=== PATIENT | female | born 1995 | race Caucasian/White ===

== ENCOUNTER 2017-02-19 17:37 | Emergency (ER) | payer OTHER ==
[2017-02-19] MEDS ORDERED: diphenhydrAMINE 50 MG/ML 1 ML VIAL IVP STA (18:52)
[2017-02-19] MEDS ORDERED: ACETAMINOPHEN IV (For NPO) 1,000 MG in EMPTY BAG 1 BAG IVPB STA (18:52)
[2017-02-19] MEDS ORDERED: METOCLOPRAMIDE 5 MG/ML 2 ML VIAL IVP STA (18:53)
[2017-02-19] MEDS ORDERED: SODIUM CHLORIDE 0.9% 1,000 ML IV ONE (18:54)
--- NOTE | 2017-02-19 19:04 | ED ---
Headache HPI <Harrison Matthews - Last Filed: 02/19/17 20:31> - General Source: RN notes reviewed Mode of arrival: ambulatory Limitations: no limitations <Leti Iverson - Last Filed: 02/20/17 03:22> - General Chief Complaint: Headache Stated Complaint: headache Time Seen by Provider: 02/19/17 18:24 - History of Present Illness Initial Comments: Patient is a 22-year-old female presents to the emergency room for evaluation of double vision and headache. Patient states she had an eye doctor appointment about a year ago and had double vision ever since. Patient states over the past week she's been having increasing headaches. Patient says it feels very "hot" behind her eyes. Patient states she wakes up every morning and takes about 10 minutes for her eyes to adjust. Patient states she sees double vision 24 hours day. Patient states when she watches a movie she usually covers 1 eye which helps her see better. Patient states when she does cover 1 eye her headache worsens. Patient states she has been taking Tylenol and Motrin with no relief of symptoms. Patient states that she followed up with an daycare assistant a few weeks ago, Dr. Saxena where she received a full eye exam. Patient states she was told that her eyes were completely healthy. Patient states she was told that her optic nerves appeared pink rather than red and was advised to follow-up with a neuro-daycare assistant. Patient states she has an appointment with neuro-daycare assistant on March 13 at [facility]. Patient states in the meantime she is still experiencing double vision and headaches that will not subside. Patient denies fevers or chills. Patient denies nausea or vomiting. Patient states she has a family history on fathers side of glaucoma and macular degeneration. Patient states her mother has a history of MS. patient denies any numbness or tingling in her fingers and toes. Patient denies any limb weakness. (Leti Iverson) - Related Data Previous Rx's Medication Instructions Recorded Amoxicillin/Potassium Clav 1 each PO Q12HR #20 tab 02/19/17 [Augmentin 875-125 Tablet] Butalb/Acetaminophen/Caffeine 1 - 2 cap PO Q4HR PRN #12 cap 02/19/17 [Fioricet 50-300-40 mg Capsule] Allergies Allergy/AdvReac Type Severity Reaction Status Date / Time No Known Allergies Allergy Verified 02/19/17 18:42 Review of Systems ROS Other: All systems not noted in ROS Statement are negative. <Harrison Matthews - Last Filed: 02/19/17 20:31> ROS Other: All systems not noted in ROS Statement are negative. <Leti Iverson - Last Filed: 02/20/17 03:22> ROS Statement: Those systems with pertinent positive or pertinent negative responses have been documented in the HPI. Past Medical History Additional Past Medical History / Comment(s): hypoglycemia History of Any Multi-Drug Resistant Organisms: None Reported Past Surgical History: No Surgical Hx Reported Additional Past Surgical History / Comment(s): cyst removed Past Anesthesia/Blood Transfusion Reactions: No Reported Reaction Past Psychological History: Anxiety Additional Psychological History / Comment(s): zoloft at beginning of - not currently medicated Smoking Status: Current every day smoker Past Alcohol Use History: Occasional Past Drug Use History: Marijuana - Past Family History Mother Family Medical History: No Reported History <Leti Iverson - Last Filed: 02/20/17 03:22> General Exam <Harrison Matthews - Last Filed: 02/19/17 20:31> Limitations: no limitations General appearance: alert, in no apparent distress Head exam: Present: atraumatic, normocephalic, normal inspection Eye exam: Present: normal appearance, PERRL, EOMI Pupils: Present: normal accommodation ENT exam: Present: normal exam, normal oropharynx, mucous membranes moist, TM's normal bilaterally, normal external ear exam Neck exam: Present: normal inspection Respiratory exam: Present: normal lung sounds bilaterally. Absent: respiratory distress Cardiovascular Exam: Present: regular rate, normal rhythm, normal heart sounds Extremities exam: Present: normal inspection Back exam: Present: normal inspection Neurological exam: Present: alert, oriented X3, CN II-XII intact, normal gait Expanded Speech: Present: fluid speech Cranial nerves: EOM's Intact: Normal Sensory exam: Upper Extremity Light Touch: Normal, Lower Extremity Light Touch: Normal Motor strength exam: RUE: 5, LUE: 5, RLE: 5, LLE: 5 Psychiatric exam: Present: normal affect, normal mood Skin exam: Present: warm, dry, intact, normal color. Absent: rash <Leti Iverson - Last Filed: 02/20/17 03:22> - General Exam Comments Initial Comments: Sitting in exam room, no acute distress. (Leti Iverson) Medical Decision Making - Lab Data Result diagrams: 02/19/17 19:15 02/19/17 19:15 <Harrison Matthews - Last Filed: 02/19/17 20:31> - Lab Data Result diagrams: 02/19/17 19:15 02/19/17 19:15 - Radiology Data Radiology results: report reviewed, image reviewed <Leti Iverson - Last Filed: 02/20/17 03:22> - Medical Decision Making Medical decision-making. Patient reports for the past 12 months she's had double vision. She's had glasses made for her which did not help. Visual acuity with each eye is 20/40. Today she comes emergency room because of a headache on the right side of the head. She has seen a local daycare assistant who was referred her to the [facility] [place] which will be in approximately 3 weeks. There is a family history of MS and the patient has neurological complaints such as not being able to move her normal way early in the morning. The patient received medications for her headache while in emergency room. She does state that drinking coffee occasionally helps with a headache. She will be placed on Fioricet for headaches. Advised to follow-up with family physician as well as on-call neurologist Dr. Morales. An MRI will be ordered prior to her visit with the neurologist. Dr. Matthews (Harrison Matthews) CT reviewed. Patient will also be placed on Augmentin for sphenoid sinusitis as well as being discharged with Fioricet for headaches. (Leti Iverson) - Lab Data Lab Results 02/19/17 02/19/17 Range/Units 19:15 19:15 WBC 14.7 H (3.8-10.6) k/uL RBC 5.31 (3.80-5.40) m/uL Hgb 15.9 (11.4-16.0) gm/dL Hct 49.3 H (34.0-46.0) % MCV 92.9 (80.0-100.0) fL MCH 29.9 (25.0-35.0) pg MCHC 32.2 (31.0-37.0) g/dL RDW 13.2 (11.5-15.5) % Plt Count 391 (150-450) k/uL Neutrophils % 73 % Lymphocytes % 19 % Monocytes % 4 % Eosinophils % 3 % Basophils % 1 % Neutrophils # 10.7 H (1.3-7.7) k/uL Lymphocytes # 2.8 (1.0-4.8) k/uL Monocytes # 0.5 (0-1.0) k/uL Eosinophils # 0.5 (0-0.7) k/uL Basophils # 0.2 (0-0.2) k/uL Sodium 145 (137-145) mmol/L Potassium 4.5 (3.5-5.1) mmol/L Chloride 108 H (98-107) mmol/L Carbon Dioxide 23 (22-30) mmol/L Anion Gap 14 mmol/L BUN 10 (7-17) mg/dL Creatinine 0.64 (0.52-1.04) mg/dL Est GFR (MDRD) Af Amer >60 (>60 ml/min/1.73 sqM) Est GFR (MDRD) Non-Af >60 (>60 ml/min/1.73 sqM) Glucose 79 (74-99) mg/dL Calcium 9.9 (8.4-10.2) mg/dL Total Bilirubin 0.8 (0.2-1.3) mg/dL AST 27 (14-36) U/L ALT 31 (9-52) U/L Alkaline Phosphatase 66 (38-126) U/L Total Protein 8.4 H (6.3-8.2) g/dL Albumin 4.9 (3.5-5.0) g/dL Disposition <Harrison Matthews - Last Filed: 02/19/17 20:31> Time of Disposition: 20:42 <Leti Iverson - Last Filed: 02/20/17 03:22> Clinical Impression: Headache, Double vision, Sinusitis Disposition: HOME SELF-CARE Condition: Good Instructions: Sinusitis (ED), Diplopia (ED) Additional Instructions: Please follow up with neurologist. Take antibiotics as directed. Take Fioricet needed for headache. If any new symptom arises or symptoms worsen, return to ER as soon as possible. Prescriptions: Butalb/Acetaminophen/Caffeine [Fioricet 50-300-40 mg Capsule] 1 - 2 cap PO Q4HR PRN #12 cap PRN Reason: Pain Amoxicillin/Potassium Clav [Augmentin 875-125 Tablet] 1 each PO Q12HR #20 tab Referrals: Orlando Morales MD [STAFF PHYSICIAN] - 1-2 days Conrad Maloney Jr, DO [Primary Care Provider] - 1-2 days
[2017-02-19 19:30] LABS: Basophils # (A) 0.2 k/uL (0-0.2); Basophils % (A) 1 %; CH 30.6; CHCM 33.1; Eosinophils # (A) 0.5 k/uL (0-0.7); Eosinophils % (A) 3 %; HCT 49.3 % (34.0-46.0); HGB 15.9 gm/dL (11.4-16.0); Luc # (Auto) 0.18; Luc % (Auto) 1; Lymphocytes # (A) 2.8 k/uL (1.0-4.8); Lymphocytes % (A) 19 %; MCH 29.9 pg (25.0-35.0); MCHC 32.2 g/dL (31.0-37.0); MCV 92.9 fL (80.0-100.0); Mean Platelet Volume 6.7; Monocytes # (A) 0.5 k/uL (0-1.0); Monocytes % (A) 4 %; Neutrophils # (A) 10.7 k/uL (1.3-7.7); Neutrophils % (A) 73 %; RBC 5.31 m/uL (3.80-5.40); RDW 13.2 % (11.5-15.5); WBC 14.7 k/uL (3.8-10.6)
[2017-02-19 19:39] LABS: ALT 31 U/L (9-52); AST 27 U/L (14-36); Alkaline Phosphatase 66 U/L (38-126); Anion Gap 14 mmol/L; Blood Urea Nitrogen 10 mg/dL (7-17); Calcium 9.9 mg/dL (8.4-10.2); Carbon Dioxide 23 mmol/L (22-30); Chloride 108 mmol/L (98-107); Glucose 79 mg/dL (74-99); Non-African American GFR(MDRD) >60 (>60 ml/min/1.73 sqM); Sodium 145 mmol/L (137-145); Total Bilirubin 0.8 mg/dL (0.2-1.3); Total Protein 8.4 g/dL (6.3-8.2)
[2017-02-19 19:44] LABS: Potassium 4.5 mmol/L (3.5-5.1)
--- NOTE | 2017-02-19 19:49 | CT ---
EXAMINATION TYPE: CT brain wo con DATE OF EXAM: 02/19/2017 7:35 PM COMPARISON: - HISTORY: Double vision x [address] DLP: 1121.00 mGycm Automated exposure control for dose reduction was used. FINDINGS: Ventricles and sulci appear normal. There is no mass effect nor midline shift. There is no sign of in tracranial hemorrhage. There is some mucosal thickening on the right side of the sphenoid sinus. Calv arium is intact. IMPRESSION: There is sphenoid sinusitis that is new compared to old exam. Otherwise negative exam.
[2017-02-19] MEDS ORDERED: BUTALB/APAP/CAFF 50-325-40MG TAB PO STA (20:30)
[2017-02-19 21:09] VITALS: BP 126/65; PULSE 78; RESP 16; TEMP 97.8
== END 2017-02-19 21:00 | disposition home or self-care (01) ==
LOC: EC 17:37
DX: R51 Headache (principal); H53.2 Diplopia; J32.9 Chronic sinusitis, unspecified; F17.200 Nicotine dependence, unspecified, uncomplicated
CPT/HCPCS: 36415; 80053; 85025; 70450; 99284; 96365; 96375 ×2; 96361; J1200; J2765; J0131

== ENCOUNTER → 2017-02-26 | Outpatient (CLI) | payer OTHER ==
--- NOTE | 2017-02-26 18:43 | MR ---
EXAMINATION TYPE: MR brain wo/w [place] wo DATE OF EXAM: 02/26/2017 6:03 PM COMPARISON: NONE HISTORY: Diplopia, neck pain Multiplanar MultiSpin echo imaging of the cervical spine was performed. Comparison: none There is reversal of the normal cervical lordosis which can be seen in patients with muscle spasticit y. C2-C3: No evidence for degenerative disc disease. No disc bulge/herniation or protrusion. No Canal stenosis. Foramina are patent bilaterally. C3-C4: No evidence for degenerative disc disease. No disc bulge/herniation or protrusion. No Canal stenosis. Foramina are patent bilaterally. C4-C5: No evidence for degenerative disc disease. No disc bulge/herniation or protrusion. No Canal stenosis. Foramina are patent bilaterally. C5-C6: No evidence for degenerative disc disease. No disc bulge/herniation or protrusion. No Canal stenosis. Foramina are patent bilaterally. C6-C7: No evidence for degenerative disc disease. No disc bulge/herniation or protrusion. No Canal stenosis. Foramina are patent bilaterally. C7-T1: No evidence for degenerative disc disease. No disc bulge/herniation or protrusion. No Canal stenosis. Foramina are patent bilaterally. Cervical segments are intact. Cervical spinal cord is of normal signal. Craniovertebral junction relationships are within normal limits. IMPRESSION: 1. There is reversal of the normal cervical lordosis which can be seen in patients with muscle spasti city. PRE AND POSTCONTRAST ENHANCED MRI OF THE BRAIN: CLINICAL HISTORY: Double vision CONTRAST: 15 ML Multihance Multiplanar and multispin-echo imaging of the brain was performed both before and after the administr ation of contrast. The ventricles, basal cisterns and sulci overlying the cerebral convexities are within normal limits. There is no evidence for midline shift or mass effect. Acute intracranial hemorrhage or extra-axial collection is not evident. There are no abnormal areas of increased or decreased signal intensity within the brain parenchyma. Incidental left parietal venous angioma. Following contrast administration, there is no evidence for pathologic enhancement or enhancing mass. The paranasal sinuses and mastoid air cells are well-aerated. IMPRESSION: Left parietal venous angioma noted incidentally. Otherwise unremarkable study.
== END | disposition home or self-care (01) ==
LOC: RADMRIMAIN 16:44
PROVIDERS: ATTEND Emergency Medicine
DX: D18.09 Hemangioma of other sites (principal); R51 Headache; M54.2 Cervicalgia
CPT/HCPCS: 70553; 72141; A9577

== ENCOUNTER 2017-02-27 17:20 | Emergency (ER) | payer OTHER ==
[2017-02-27 17:45] VITALS: RESP 18
[2017-02-27] MEDS ORDERED: diphenhydrAMINE 50 MG/ML 1 ML VIAL IVP STA (19:19)
[2017-02-27] MEDS ORDERED: METOCLOPRAMIDE 5 MG/ML 2 ML VIAL IVP STA (19:19)
[2017-02-27] MEDS ORDERED: SODIUM CHLORIDE 0.9% 1,000 ML IV STA (19:19)
--- NOTE | 2017-02-27 19:41 | ED ---
General Adult HPI - General Chief complaint: Headache Stated complaint: blurred vision, headache Time Seen by Provider: 02/27/17 18:34 Source: patient Mode of arrival: ambulatory Limitations: no limitations - History of Present Illness Initial comments: Patient is a 22-year-old female presenting with headache and double vision. Patient states she's been doing with a headache for the past 2 days. She describes as pressure in a bandlike around the head. Patient tries Fioricet with 30 minutes of relief from headache but not double vision. Patient states she's having binocular double vision for the past year. Patient states she had MRI 2 days ago. Patient has seen an registration specialist and referred to a neuro- registration specialist at [facility] for her double vision. Patient does smoke tobacco as well as marijuana. Patient denies any fever, chills, chest pain, shortness breath, nausea, vomiting, diarrhea, dysuria. Patient denies any weakness, numbness, trouble talking. Patient states her mother has multiple sclerosis. Chart reviewed from 02/19/2017: Dr. Saxena is her registration specialist. Neuro registration specialist appointment is March 13. MRI done 02/26/2017 shows an incidental left filed venous angioma otherwise unremarkable to account for her symptoms.. - Related Data Home Medications Medication Instructions Recorded Confirmed Amoxicillin/Potassium Clav 1 tab PO Q12HR 02/27/17 02/27/17 [Augmentin 875-125 Tablet] Allergies Allergy/AdvReac Type Severity Reaction Status Date / Time No Known Allergies Allergy Verified 02/27/17 18:54 Review of Systems ROS Statement: Those systems with pertinent positive or pertinent negative responses have been documented in the HPI. Constitutional: No fever and no chills. HENT: No congestion, no rhinorrhea and no sore throat. Eyes: No discharge and no redness. Respiratory: No cough and no shortness of breath. Cardiovascular: No chest pain and no palpitations. Gastrointestinal: No nausea, no vomiting, no abdominal pain and no diarrhea. Genitourinary: No dysuria and no hematuria. Musculoskeletal: No back pain and no arthralgias. Skin: No pallor and no rash. Neurological: No dizziness, + double vision and +headaches. ROS Other: All systems not noted in ROS Statement are negative. Past Medical History Additional Past Medical History / Comment(s): hypoglycemia History of Any Multi-Drug Resistant Organisms: None Reported Past Surgical History: No Surgical Hx Reported Additional Past Surgical History / Comment(s): cyst removed Past Anesthesia/Blood Transfusion Reactions: No Reported Reaction Past Psychological History: Anxiety Additional Psychological History / Comment(s): zoloft at beginning of - not currently medicated Smoking Status: Current every day smoker Past Alcohol Use History: Occasional Past Drug Use History: Marijuana - Past Family History Mother Family Medical History: No Reported History General Exam - General Exam Comments Initial Comments: Constitutional: Patient appears well-developed and well-nourished. No distress. Head: Normocephalic and atraumatic. Eyes: Conjunctivae and EOM are normal. Right eye exhibits no discharge. Left eye exhibits no discharge. No scleral icterus. Neck: Normal range of motion. Neck supple. Cardiovascular: Normal rate and regular rhythm. No murmur heard. Pulmonary/Chest: Effort normal and breath sounds normal. No respiratory distress. No wheezes. Abdominal: Soft. No distension. There is no tenderness. There is no rebound and no guarding. Musculoskeletal: Normal range of motion. No edema or tenderness. Neuro Exam: A&Ox3, speech is fluent and spontaneous CN 2: no visual field deficits, PERRL CN 3, 4, 6: EOMI, no nystagmus CN 5: facial sensation intact b/l CN 7: Eyebrow raise and smile equal b/l CN 8: hearing intact to conversation CN 9, 10: palate elevation equal, no hoarseness to voice CN 11: shoulder shrug equal b/l CN 12: tongue protrusion w/o deviation Sensory: Intact to light touch, upper and lower extremities Motor: No pronator drift, no atrophy, normal muscle tone, b/l muscle strength 5/ 5 of hand flexors, biceps, triceps, quads, hamstrings, plantar and dorsiflexion Cerebellar: finger to nose intact b/l, heel to hill intact b/l, Romberg negative Skin: Skin is warm and dry. Not diaphoretic. Nursing notes and vitals reviewed. Limitations: no limitations Course Vital Signs 02/27/17 17:42 Temperature 99.1 F Pulse Rate 76 Respiratory 18 Rate Blood Pressure 121/67 O2 Sat by Pulse 99 Oximetry - Reevaluation(s) Reevaluation #1: 02/27/17 20:57 Patient with complete resolution of headache however patient still has double vision which she's had for the past year. Medical Decision Making - Medical Decision Making Patient is a 22-year-old female presenting with headache. Patient recently had a MRI which was unremarkable. CBC, BMP, TSH, UA, UDS unremarkable. UDS positive for what patient told me: Fioricet and marijuana. Patient had relief of headache with medications and oxygen. Prior to discharge, patient was resting comfortably in bed. Course of stay improved except for double vision. Denies pain. Discussed physical exam and diagnostic tests with patient. Questions answered and patient is agreeable to discharge with close follow up with Primary Care Physician. Instructed to return to Emergency Department if symptoms worsen. Patient has appointment with Dr. Mason tomorrow for referral to Dr. Morales. - Lab Data Result diagrams: 02/27/17 19:40 02/27/17 19:40 Lab Results 02/27/17 02/27/17 02/27/17 Range/Units 19:40 19:40 19:40 WBC 11.8 H (3.8-10.6) k/uL RBC 5.03 (3.80-5.40) m/uL Hgb 15.8 (11.4-16.0) gm/dL Hct 46.4 H (34.0-46.0) % MCV 92.3 (80.0-100.0) fL MCH 31.4 (25.0-35.0) pg MCHC 34.1 (31.0-37.0) g/dL RDW 12.9 (11.5-15.5) % Plt Count 443 (150-450) k/uL Neutrophils % 62 % Lymphocytes % 28 % Monocytes % 3 % Eosinophils % 5 % Basophils % 1 % Neutrophils # 7.3 (1.3-7.7) k/uL Lymphocytes # 3.4 (1.0-4.8) k/uL Monocytes # 0.4 (0-1.0) k/uL Eosinophils # 0.6 (0-0.7) k/uL Basophils # 0.1 (0-0.2) k/uL Sodium 148 H (137-145) mmol/L Potassium 4.2 (3.5-5.1) mmol/L Chloride 109 H (98-107) mmol/L Carbon Dioxide 27 (22-30) mmol/L Anion Gap 12 mmol/L BUN 9 (7-17) mg/dL Creatinine 0.67 (0.52-1.04) mg/dL Est GFR (MDRD) Af Amer >60 (>60 ml/min/1.73 sqM) Est GFR (MDRD) Non-Af >60 (>60 ml/min/1.73 sqM) Glucose 87 (74-99) mg/dL Calcium 10.0 (8.4-10.2) mg/dL TSH 2.770 (0.465-4.680) mIU/L Urine Color Yellow Urine Appearance Turbid H (Clear) Urine pH 7.5 (5.0-8.0) Ur Specific [place] 1.017 (1.001-1.035) Urine Protein Negative (Negative) Urine Glucose (UA) Negative (Negative) Urine Ketones Negative (Negative) Urine Blood Negative (Negative) Urine Nitrite Negative (Negative) Urine Bilirubin Negative (Negative) Urine Urobilinogen <2.0 (<2.0) mg/dL Ur Leukocyte Esterase Negative (Negative) Ur Squamous Epith Cells 1 (0-4) /hpf Amorphous Sediment Few H (None) /hpf Urine HCG, Qual (Not Detectd) Urine Opiates Screen Not Detected (NotDetected) Ur Oxycodone Screen Not Detected (NotDetected) Urine Methadone Screen Not Detected (NotDetected) Ur Propoxyphene Screen Not Detected (NotDetected) Ur Barbiturates Screen Detected H (NotDetected) U Tricyclic Antidepress Not Detected (NotDetected) Ur Phencyclidine Scrn Not Detected (NotDetected) Ur Amphetamines Screen Not Detected (NotDetected) U Methamphetamines Scrn Not Detected (NotDetected) U Benzodiazepines Scrn Not Detected (NotDetected) Urine Cocaine Screen Not Detected (NotDetected) U Marijuana (THC) Screen Detected H (NotDetected) 02/27/17 Range/Units 19:40 WBC (3.8-10.6) k/uL RBC (3.80-5.40) m/uL Hgb (11.4-16.0) gm/dL Hct (34.0-46.0) % MCV (80.0-100.0) fL MCH (25.0-35.0) pg MCHC (31.0-37.0) g/dL RDW (11.5-15.5) % Plt Count (150-450) k/uL Neutrophils % % Lymphocytes % % Monocytes % % Eosinophils % % Basophils % % Neutrophils # (1.3-7.7) k/uL Lymphocytes # (1.0-4.8) k/uL Monocytes # (0-1.0) k/uL Eosinophils # (0-0.7) k/uL Basophils # (0-0.2) k/uL Sodium (137-145) mmol/L Potassium (3.5-5.1) mmol/L Chloride (98-107) mmol/L Carbon Dioxide (22-30) mmol/L Anion Gap mmol/L BUN (7-17) mg/dL Creatinine (0.52-1.04) mg/dL Est GFR (MDRD) Af Amer (>60 ml/min/1.73 sqM) Est GFR (MDRD) Non-Af (>60 ml/min/1.73 sqM) Glucose (74-99) mg/dL Calcium (8.4-10.2) mg/dL TSH (0.465-4.680) mIU/L Urine Color Urine Appearance (Clear) Urine pH (5.0-8.0) Ur Specific [place] (1.001-1.035) Urine Protein (Negative) Urine Glucose (UA) (Negative) Urine Ketones (Negative) Urine Blood (Negative) Urine Nitrite (Negative) Urine Bilirubin (Negative) Urine Urobilinogen (<2.0) mg/dL Ur Leukocyte Esterase (Negative) Ur Squamous Epith Cells (0-4) /hpf Amorphous Sediment (None) /hpf Urine HCG, Qual Not Detected (Not Detectd) Urine Opiates Screen (NotDetected) Ur Oxycodone Screen (NotDetected) Urine Methadone Screen (NotDetected) Ur Propoxyphene Screen (NotDetected) Ur Barbiturates Screen (NotDetected) U Tricyclic Antidepress (NotDetected) Ur Phencyclidine Scrn (NotDetected) Ur Amphetamines Screen (NotDetected) U Methamphetamines Scrn (NotDetected) U Benzodiazepines Scrn (NotDetected) Urine Cocaine Screen (NotDetected) U Marijuana (THC) Screen (NotDetected) Disposition Clinical Impression: Headache, Double vision Disposition: HOME SELF-CARE Condition: Good Instructions: Acute Headache (ED), Diplopia (ED) Referrals: Sammy Marte MD [Primary Care Provider] - 1-2 days
[2017-02-27 19:57] LABS: Basophils # (A) 0.1 k/uL (0-0.2); Basophils % (A) 1 %; CH 30.1; CHCM 32.8; Eosinophils # (A) 0.6 k/uL (0-0.7); Eosinophils % (A) 5 %; HCT 46.4 % (34.0-46.0); HDW 2.26; HGB 15.8 gm/dL (11.4-16.0); Luc # (Auto) 0.13; Luc % (Auto) 1; Lymphocytes # (A) 3.4 k/uL (1.0-4.8); Lymphocytes % (A) 28 %; MCH 31.4 pg (25.0-35.0); MCHC 34.1 g/dL (31.0-37.0); MCV 92.3 fL (80.0-100.0); Mean Platelet Volume 6.4; Monocytes # (A) 0.4 k/uL (0-1.0); Monocytes % (A) 3 %; Neutrophils # (A) 7.3 k/uL (1.3-7.7); Neutrophils % (A) 62 %; RBC 5.03 m/uL (3.80-5.40); RDW 12.9 % (11.5-15.5); WBC 11.8 k/uL (3.8-10.6); WBC (Perox) 11.62
[2017-02-27 20:05] LABS: Amorphous Sediment,Urine Few /hpf; Appearance,Urine Turbid (Clear); Bilirubin,Urine Negative (Negative); Glucose,Urine (UA) Negative (Negative); Ketones,Urine Negative (Negative); Leukocyte Esterase,Urine Negative (Negative); Nitrite,Urine Negative (Negative); PH, Urine 7.5 (5.0-8.0); Particle Count 7582; Protein,Urine Negative (Negative); Specific Gravity,Urine 1.017 (1.001-1.035); Squamous Epithelial Cell,Urine 1 /hpf (0-4); UA Billing (MACRO vs. MICRO) MICRO; Urobilinogen,Urine <2.0 mg/dL (<2.0)
[2017-02-27 20:08] LABS: Anion Gap 12 mmol/L; Blood Urea Nitrogen 9 mg/dL (7-17); Carbon Dioxide 27 mmol/L (22-30); Chloride 109 mmol/L (98-107); Glucose 87 mg/dL (74-99); Non-African American GFR(MDRD) >60 (>60 ml/min/1.73 sqM); Potassium 4.2 mmol/L (3.5-5.1); Sodium 148 mmol/L (137-145)
[2017-02-27 21:20] VITALS: BP 122/65; PULSE 70; TEMP 97
== END 2017-02-27 21:20 | disposition home or self-care (01) ==
LOC: EC 17:20
DX: H53.8 Other visual disturbances (principal); R51 Headache; F17.200 Nicotine dependence, unspecified, uncomplicated
CPT/HCPCS: 36415; 80048; 84443; 85025; 81001; 81025; 80306; 99284; 96374; 96375; 96361 ×2; J1200; J2765

== ENCOUNTER 2017-12-28 17:32 | Emergency (ER) | payer OTHER ==
--- NOTE | 2017-12-28 18:10 | ED ---
General Adult HPI - General Chief complaint: Abdominal Pain Stated complaint: stomach pain Time Seen by Provider: 12/28/17 17:39 Source: patient, RN notes reviewed Mode of arrival: ambulatory Limitations: no limitations - History of Present Illness Initial comments: This is a 22-year-old female who presents to the emergency department with chief complaint of abdominal mass. Patient states that for the past couple of months she has had a dimple that she noticed on her right lower abdomen. Yesterday morning she noticed a small mass in this area. Patient states she is worried because she was diagnosed with ovarian cysts that ruptured a couple of years ago and she never followed up. She denies any nausea or vomiting, fevers or chills, shortness of breath or chest pain, abnormal vaginal bleeding or discharge, dysuria or hematuria. - Related Data Previous Rx's Medication Instructions Recorded Cephalexin [Keflex] 500 mg PO Q12HR #20 cap 12/28/17 Allergies Allergy/AdvReac Type Severity Reaction Status Date / Time No Known Allergies Allergy Verified 12/28/17 17:48 Review of Systems ROS Statement: Those systems with pertinent positive or pertinent negative responses have been documented in the HPI. ROS Other: All systems not noted in ROS Statement are negative. Past Medical History Additional Past Medical History / Comment(s): hypoglycemia History of Any Multi-Drug Resistant Organisms: None Reported Past Surgical History: No Surgical Hx Reported Additional Past Surgical History / Comment(s): cyst removed Past Anesthesia/Blood Transfusion Reactions: No Reported Reaction Past Psychological History: Anxiety Smoking Status: Current every day smoker Past Alcohol Use History: Occasional Past Drug Use History: Marijuana - Past Family History Mother Family Medical History: No Reported History General Exam - General Exam Comments Initial Comments: General: Awake and alert, well-developed; in no apparent distress. HEENT: Head atraumatic, normocephalic. Pupils are equal, round and reactive to light. Extraocular movements intact. Oropharynx moist without erythema or exudate. Neck: Supple. Normal ROM. Cardiovascular: Regular rate and rhythm. No murmurs, rubs or gallops. Chest symmetrical. Respiratory: Lungs clear to auscultation bilaterally. No wheezes, rales or rhonchi. Normal respiratory effort with no use of accessory muscles. Abdomen: Soft, non-tender, non-distended. No rigidity, rebound or guarding. Normal bowel sounds in all 4 quadrants. There is a superficial, pea-sized, firm immobile mass right lower quadrant abdomen. Musculoskeletal: Normal ROM, no tenderness bilateral upper and lower extremities. Ambulating normally. Skin: [place], warm and dry without rashes or lesions. Neurological: Alert and oriented x3. CN II-XII grossly intact. Speech is fluent and answers are appropriate. No focal neuro deficits. Psychiatric: Normal mood and affect. No overt signs of depression or anxiety noted. Limitations: no limitations Course Vital Signs 12/28/17 17:36 Temperature 98.1 F Pulse Rate 90 Respiratory 20 Rate Blood Pressure 129/85 O2 Sat by Pulse 100 Oximetry Medical Decision Making - Medical Decision Making This is a 22-year-old female who presents to the emergency department with chief complaint of abdominal mass. There is a small, firm immobile pea-sized mass right lower quadrant. Ultrasound was initially ordered. Patient states that she does not want to wait for an ultrasound and the results. She states that she would rather follow up outpatient with her primary care provider. Patient will be given a prescription for antibiotics as lump is likely a lymph node. Patient's vital signs are stable and she is in no acute distress. She will be discharged home. She is in agreement and voices understanding. All questions were answered. Disposition Clinical Impression: Mass of soft tissue Disposition: HOME SELF-CARE Condition: Good Instructions: Soft Tissue Mass (ED) Additional Instructions: Please take medications as prescribed. Please follow up with primary care provider within 1-2 days. Return to emergency department if symptoms should worsen or any concerns arise. Prescriptions: Cephalexin [Keflex] 500 mg PO Q12HR #20 cap Referrals: Sammy Marte MD [Primary Care Provider] - 1-2 days Time of Disposition: 18:38
[2017-12-28 18:44] VITALS: BP 124/78; PULSE 68; RESP 16; TEMP 98.7
== END 2017-12-28 18:43 | disposition home or self-care (01) ==
LOC: EC 17:32
DX: R19.03 Right lower quadrant abdominal swelling, mass and lump (principal); F17.200 Nicotine dependence, unspecified, uncomplicated
CPT/HCPCS: 99283

== ENCOUNTER → 2018-01-13 | Outpatient (CLI) | payer OTHER ==
--- NOTE | 2018-01-14 11:00 | US ---
EXAMINATION TYPE: US abdomen limited DATE OF EXAM: 01/13/2018 COMPARISON: NONE CLINICAL HISTORY: R19.09 abdominal mass. Patient has palpable area at RLQ that feels like a small superficial knot. She says it occasionally i s painful. At this area is an irregular shaped anechoic mass with no posterior enhancement, some internal echoes measuring, 0.6 x 0.5 x 0.5cm This may cross fat planes. Additional workup is recommended. Differential could include a solid lesio n. Infection could be considered differential. Hematoma be considered. IMPRESSION: 1. Small hypoechoic area within the subcutaneous tissues of the palpable abnormality of uncertain musa ology. Differential is discussed above. Additional workup is recommended.
== END | disposition home or self-care (01) ==
LOC: RADUSWWP 16:18
PROVIDERS: ATTEND Internal Medicine
DX: R19.09 Other intra-abdominal and pelvic swelling, mass and lump (principal)
CPT/HCPCS: 76705

== ENCOUNTER 2018-01-27 09:00 | Day surgery (SDC) | payer OTHER ==
[2018-01-22 14:54] VITALS: BMI 27.4
[~2018-01-27 09:00] MED LIST: DEXAMETHASONE SOD PHOSPHATE 10 MG/ML 1 ML VIAL IV ONE; HEPARIN SODIUM,PORCINE 5,000 UNIT/ML 1 ML VIAL SQ ONE; HYDROmorphone 0.5 MG/0.5 ML SYRINGE IVP PRN; LACTATED RINGERS 1,000 ML IV SCH; MORPHINE SULFATE 4 MG/ML SYRINGE IV PRN; ONDANSETRON 4 MG/2 ML VIAL IVP ONE; ONDANSETRON 4 MG/2 ML VIAL IVP PRN; Pre Op ABX Message 1 EACH MISC MISCELLANE ONE
[2018-01-27 09:45] VITALS: TEMP 97.4
--- NOTE | 2018-01-27 10:32 | P.GSHP ---
History of Present Illness H&P Date: 01/27/18 Chief Complaint: Abdominal wall lipoma This a 22-year-old female referred from Dr. Marte. Patient presents today for excision of abdominal wall lipoma. Patient is developed a 2 cm lipoma in the right lower quadrant. Past Medical History Past Medical History: Eye Disorder Additional Past Medical History / Comment(s): hypoglycemia. DIPLOPIA History of Any Multi-Drug Resistant Organisms: None Reported Past Surgical History: No Surgical Hx Reported Additional Past Surgical History / Comment(s): cyst removed. RT EYE SX FOR DIPLOPIA 09/2017 Past Anesthesia/Blood Transfusion Reactions: No Reported Reaction Smoking Status: Current every day smoker - Past Family History Mother Family Medical History: No Reported History Medications and Allergies Home Medications Medication Instructions Recorded Confirmed Type No Known Home Medications [No 01/22/18 01/22/18 History Known Home Medications] Allergies Allergy/AdvReac Type Severity Reaction Status Date / Time No Known Allergies Allergy Verified 01/22/18 14:47 Surgical - Exam Vital Signs Temp Pulse Resp BP Pulse Ox 97.4 F L 66 16 110/63 100 01/27/18 09:43 01/27/18 09:43 01/27/18 09:43 01/27/18 09:43 01/27/18 09:43 - General well developed, no distress - Eyes PERRL - ENT normal pinna - Neck no masses - Respiratory normal expansion - Cardiovascular Rhythm: regular - Abdomen 2 cm lipoma right lower quadrant Abdomen: soft, non tender Assessment and Plan Assessment: Abdominal wall lipoma. We'll perform excision.
[2018-01-27] MEDS ORDERED: BUPIVACAINE (PF) 0.25% 30 ML VIAL SQ ONE ×2 (10:41)
[2018-01-27] MEDS ORDERED: fentaNYL (PF) 50 MCG/ML 2 ML AMP ONE (10:45)
[2018-01-27] MEDS ORDERED: LIDOCAINE 1% INJ 10MG/ML (20 ML MDV) ONE (10:45)
[2018-01-27] MEDS ORDERED: PROPOFOL 10 MG/ML 20 ML VIAL IV ONE (10:45)
[2018-01-27] MEDS ORDERED: MIDAZOLAM 2 MG/2 ML VIAL ONE (10:45)
[2018-01-27] MEDS ORDERED: KETOROLAC 30 MG/ML 1 ML VIAL ONE (10:45)
[2018-01-27] MEDS ORDERED: ceFAZolin 1,000 MG VIAL IVPB ONE (10:56)
--- NOTE | 2018-01-27 11:15 | P.OP ---
Date of Procedure: 01/27/18 Preoperative Diagnosis: Right lower quadrant abdominal wall lipoma Postoperative Diagnosis: Right lower quadrant abdominal wall lipoma Procedure(s) Performed: Excision of abdominal wall lipoma Anesthesia: MAC Surgeon: Bill Lima Estimated Blood Loss (ml): 3 Pathology: other (Abdominal wall lipoma) Condition: stable Disposition: PACU Description of Procedure: The patient's placed in the operative table in the supine position. She received IV sedation. Her abdominal wall was prepped and draped usual sterile fashion. Patient had a 3 cm lipoma located in the right lower quadrant. The skin was anesthetized 1% local Xylocaine. And then the skin was incised using a 15 blade. Using blunt and sharp dissection and electrocautery the lipoma was excised. Lipomas first 5 cm diameter. The skin was then closed interrupted 3- 0 Monocryl suture. Dermabond was applied. Patient tolerated the procedure well and was sent to recovery in stable condition.
[2018-01-27 11:21] VITALS: RESP 18
[2018-01-27] MEDS ORDERED: ACETAMINOPHEN TAB 500 MG TAB PO ONE (11:38)
[2018-01-27] MEDS ORDERED: MORPHINE SULFATE 10 MG/ML SYRINGE IV ONE (12:25)
[2018-01-27 12:52] VITALS: BP 109/66; PULSE 58
== END 2018-01-27 13:09 | disposition home or self-care (01) ==
LOC: OR 09:00
PROVIDERS: ATTEND Surgery
DX: D48.1 Neoplasm of uncertain behavior of connective and other soft tissue (principal); H53.2 Diplopia; E16.2 Hypoglycemia, unspecified; F17.210 Nicotine dependence, cigarettes, uncomplicated
CPT/HCPCS: 81025; 88304; 22903; J2250; J1644; J1100; J2270; J2405; J0690; J2001; J3010; J1885; J2704

== ENCOUNTER 2018-05-25 20:13 | Observation (INO) | payer OTHER ==
[2018-05-25] MEDS ORDERED: SODIUM CHLORIDE 0.9% 1,000 ML IV STA (20:37)
[2018-05-25] MEDS ORDERED: METOCLOPRAMIDE 5 MG/ML 2 ML VIAL IVP STA (20:37)
[2018-05-25] MEDS ORDERED: ACETAMINOPHEN TAB 500 MG TAB PO STA (20:39)
--- NOTE | 2018-05-25 21:13 | ED ---
General Adult HPI - General Chief complaint: Abdominal Pain Stated complaint: Vomiting Time Seen by Provider: 05/25/18 20:25 Source: patient, RN notes reviewed Mode of arrival: wheelchair Limitations: no limitations - History of Present Illness Initial comments: 23-year-old female presents to the emergency department for a chief complaint of lower abdominal pain 3 days. Patient states she has been nauseous for the past 2 days but has not been vomiting much. Patient denies any diarrhea. Patient states the pain is mostly in the right lower quadrant. Patient has not had any abdominal surgeries. Patient states she is possibly . Patient denies any vaginal bleeding or discharge. Patient has no other complaints at this time including shortness of breath, chest pain, abdominal pain, nausea or vomiting, headache, or visual changes. - Related Data Home Medications Medication Instructions Recorded Confirmed No Known Home Medications 01/22/18 05/25/18 Allergies Allergy/AdvReac Type Severity Reaction Status Date / Time No Known Allergies Allergy Verified 05/25/18 20:21 Review of Systems ROS Statement: Those systems with pertinent positive or pertinent negative responses have been documented in the HPI. ROS Other: All systems not noted in ROS Statement are negative. Past Medical History Past Medical History: Eye Disorder Additional Past Medical History / Comment(s): hypoglycemia. DIPLOPIA History of Any Multi-Drug Resistant Organisms: None Reported Past Surgical History: No Surgical Hx Reported Additional Past Surgical History / Comment(s): cyst removed. RT EYE SX FOR DIPLOPIA 09/2017 Past Anesthesia/Blood Transfusion Reactions: No Reported Reaction Past Psychological History: Anxiety Smoking Status: Current every day smoker Past Alcohol Use History: Occasional Past Drug Use History: Marijuana - Past Family History Mother Family Medical History: No Reported History General Exam Limitations: no limitations General appearance: alert, in no apparent distress Head exam: Present: atraumatic, normocephalic, normal inspection ENT exam: Present: normal exam, mucous membranes moist Neck exam: Present: normal inspection, full ROM. Absent: tenderness, meningismus, lymphadenopathy Respiratory exam: Present: normal lung sounds bilaterally. Absent: respiratory distress, wheezes, rales, rhonchi, stridor Cardiovascular Exam: Present: regular rate, normal rhythm, normal heart sounds. Absent: systolic murmur, diastolic murmur, rubs, gallop, clicks GI/Abdominal exam: Present: soft, tenderness (RLQ tenderness with mild LLQ tenderness.), normal bowel sounds. Absent: distended, guarding, rebound, rigid Course Vital Signs 05/25/18 20:19 Temperature 98.2 F Pulse Rate 81 Respiratory 20 Rate Blood Pressure 144/64 O2 Sat by Pulse 98 Oximetry Medical Decision Making - Medical Decision Making 23-year-old female presents to the emergency department for a chief complaint of lower abdominal pain 3 days. Patient has had mild nausea but no vomiting. No diarrhea. Patient states she may be . CBC shows a white count of 17.2 with a left shift. CMP unremarkable. Urinalysis unremarkable. Ultrasound of the appendix appears to be visualized and appears normal. Ultrasound shows a gestational age of 8 weeks and 4 days no complicating process seen. Beta hCG 122,974. Patient still complaining of much pain in the right lower quadrant. Patient will be admitted for a white count with abdominal pain. Dr. Wilkerson also saw the patient and agrees. - Lab Data Result diagrams: 05/25/18 21:04 05/25/18 21:04 Lab Results 05/25/18 05/25/18 05/25/18 Range/Units 21:04 21:04 21:04 WBC 17.2 H (3.8-10.6) k/uL RBC 5.01 (3.80-5.40) m/uL Hgb 15.2 (11.4-16.0) gm/dL Hct 43.7 (34.0-46.0) % MCV 87.2 (80.0-100.0) fL MCH 30.3 (25.0-35.0) pg MCHC 34.7 (31.0-37.0) g/dL RDW 12.7 (11.5-15.5) % Plt Count 395 (150-450) k/uL Neutrophils % 77 % Lymphocytes % 15 % Monocytes % 5 % Eosinophils % 2 % Basophils % 0 % Neutrophils # 13.1 H (1.3-7.7) k/uL Lymphocytes # 2.6 (1.0-4.8) k/uL Monocytes # 0.8 (0-1.0) k/uL Eosinophils # 0.3 (0-0.7) k/uL Basophils # 0.0 (0-0.2) k/uL Sodium 138 (137-145) mmol/L Potassium 4.0 (3.5-5.1) mmol/L Chloride 108 H (98-107) mmol/L Carbon Dioxide 21 L (22-30) mmol/L Anion Gap 9 mmol/L BUN 5 L (7-17) mg/dL Creatinine 0.50 L (0.52-1.04) mg/dL Est GFR (CKD-EPI)AfAm >90 (>60 ml/min/1.73 sqM) Est GFR (CKD-EPI)NonAf >90 (>60 ml/min/1.73 sqM) Glucose 90 (74-99) mg/dL Calcium 9.6 (8.4-10.2) mg/dL Total Bilirubin 0.2 (0.2-1.3) mg/dL AST 20 (14-36) U/L ALT 30 (9-52) U/L Alkaline Phosphatase 56 (38-126) U/L Total Protein 7.0 (6.3-8.2) g/dL Albumin 4.3 (3.5-5.0) g/dL Amylase 50 (30-110) U/L Lipase 59 (23-300) U/L HCG, Quant 898267.0 mIU/mL Urine Color Urine Appearance (Clear) Urine pH (5.0-8.0) Ur Specific [place] (1.001-1.035) Urine Protein (Negative) Urine Glucose (UA) (Negative) Urine Ketones (Negative) Urine Blood (Negative) Urine Nitrite (Negative) Urine Bilirubin (Negative) Urine Urobilinogen (<2.0) mg/dL Ur Leukocyte Esterase (Negative) Urine WBC (0-5) /hpf Urine Mucus (None) /hpf Urine HCG, Qual (Not Detectd) 05/25/18 05/25/18 Range/Units 21:40 21:40 WBC (3.8-10.6) k/uL RBC (3.80-5.40) m/uL Hgb (11.4-16.0) gm/dL Hct (34.0-46.0) % MCV (80.0-100.0) fL MCH (25.0-35.0) pg MCHC (31.0-37.0) g/dL RDW (11.5-15.5) % Plt Count (150-450) k/uL Neutrophils % % Lymphocytes % % Monocytes % % Eosinophils % % Basophils % % Neutrophils # (1.3-7.7) k/uL Lymphocytes # (1.0-4.8) k/uL Monocytes # (0-1.0) k/uL Eosinophils # (0-0.7) k/uL Basophils # (0-0.2) k/uL Sodium (137-145) mmol/L Potassium (3.5-5.1) mmol/L Chloride (98-107) mmol/L Carbon Dioxide (22-30) mmol/L Anion Gap mmol/L BUN (7-17) mg/dL Creatinine (0.52-1.04) mg/dL Est GFR (CKD-EPI)AfAm (>60 ml/min/1.73 sqM) Est GFR (CKD-EPI)NonAf (>60 ml/min/1.73 sqM) Glucose (74-99) mg/dL Calcium (8.4-10.2) mg/dL Total Bilirubin (0.2-1.3) mg/dL AST (14-36) U/L ALT (9-52) U/L Alkaline Phosphatase (38-126) U/L Total Protein (6.3-8.2) g/dL Albumin (3.5-5.0) g/dL Amylase (30-110) U/L Lipase (23-300) U/L HCG, Quant mIU/mL Urine Color Yellow Urine Appearance Turbid H (Clear) Urine pH 7.5 (5.0-8.0) Ur Specific [place] 1.022 (1.001-1.035) Urine Protein Trace H (Negative) Urine Glucose (UA) Negative (Negative) Urine Ketones 2+ H (Negative) Urine Blood Negative (Negative) Urine Nitrite Negative (Negative) Urine Bilirubin Negative (Negative) Urine Urobilinogen 2.0 (<2.0) mg/dL Ur Leukocyte Esterase Negative (Negative) Urine WBC 1 (0-5) /hpf Urine Mucus Rare H (None) /hpf Urine HCG, Qual Detected (Not Detectd) Disposition Clinical Impression: Abdominal pain, Disposition: ADMITTED IP TO THIS HOSP Is patient prescribed a controlled substance at d/c from ED?: No Referrals: Sammy Marte MD [Primary Care Provider] - 1-2 days Time of Disposition: 00:48
[2018-05-25 21:21] LABS: Basophils % (A) 0 %; Eosinophils # (A) 0.3 k/uL (0-0.7); Eosinophils % (A) 2 %; HCT 43.7 % (34.0-46.0); HGB 15.2 gm/dL (11.4-16.0); Lymphocytes # (A) 2.6 k/uL (1.0-4.8); Lymphocytes % (A) 15 %; MCH 30.3 pg (25.0-35.0); MCHC 34.7 g/dL (31.0-37.0); MCV 87.2 fL (80.0-100.0); Mean Platelet Volume 6.7; Monocytes # (A) 0.8 k/uL (0-1.0); Monocytes % (A) 5 %; Neutrophils # (A) 13.1 k/uL (1.3-7.7); Neutrophils % (A) 77 %; Platelet Count 395 k/uL (150-450); RBC 5.01 m/uL (3.80-5.40); RDW 12.7 % (11.5-15.5); WBC 17.2 k/uL (3.8-10.6)
[2018-05-25 21:32] LABS: ALT 30 U/L (9-52); AST 20 U/L (14-36); Albumin 4.3 g/dL (3.5-5.0); Alkaline Phosphatase 56 U/L (38-126); Amylase 50 U/L (30-110); Anion Gap 9 mmol/L; Blood Urea Nitrogen 5 mg/dL (7-17); Calcium 9.6 mg/dL (8.4-10.2); Carbon Dioxide 21 mmol/L (22-30); Chloride 108 mmol/L (98-107); Glucose 90 mg/dL (74-99); Lipase 59 U/L (23-300); Sodium 138 mmol/L (137-145); Total Bilirubin 0.2 mg/dL (0.2-1.3)
[2018-05-25 22:02] LABS: Appearance,Urine Turbid (Clear); Bilirubin,Urine Negative (Negative); Blood,Urine Negative (Negative); Color,Urine Yellow; Glucose,Urine (UA) Negative (Negative); Ketones,Urine 2+ (Negative); Leukocyte Esterase,Urine Negative (Negative); Mucus,Urine Rare /hpf; Nitrite,Urine Negative (Negative); PH, Urine 7.5 (5.0-8.0); Protein,Urine Trace (Negative); Specific Gravity,Urine 1.022 (1.001-1.035); WBC,Urine 1 /hpf (0-5)
--- NOTE | 2018-05-26 00:17 | US ---
EXAMINATION TYPE: Transabdominal DATE OF EXAM: 02/04/18 COMPARISON: NONE CLINICAL HISTORY: Pain. EXAM PERFORMED: Transabdominal (TA) EXAM MEASUREMENTS: GESTATIONAL AGE / DATING Physician Established: Not yet established Dates by LMP: 03/26/2018 (8 weeks/4 days) EDC: 12/31/2018 Dates by First Scan: No previous this is first scan Dates by Current Scan for: (8 weeks/6 days) EDC: 12/29/2018 MATERNAL ANATOMY Uterus: 9.7 x 6.1 x 7.6 cm; Anteverted, appears wnl Right Ovary: 3.6 x 2.1 x 2.2 cm; Cystic area measured 0.9 x 0.8 x 0.8 cm likely follicle Left Ovary: 3.5 x 1.5 x 1.6 cm; Appears wnl Post CDS / Adnexa: Appears wnl Presence of free fluid: Not seen Presence of corpus luteal cyst: Not seen Presence of subchorionic bleed: Not seen GESTATION / SURVEY CRL: 2.2 cm (8 weeks/6 days) Yolk Sac (normal less than 6mm): 4 mm Heart Rate: 168 bpm Rhythm: Normal IUP: Viable IUP Date of LMP: 03/26/2018 Beta HcG (if available): 122,974 IMPRESSION: The ultrasound gestational age is 8 weeks 4 days. No complicating process seen.
--- NOTE | 2018-05-26 00:17 | US ---
EXAMINATION TYPE: US abdomen APPY DATE OF EXAM: 05/25/2018 COMPARISON: NONE CLINICAL HISTORY: Pain. APPENDIX AP Diameter (normal < 6mm): 5 mm Measured outer wall to outer wall. Is the appendix seen in its entirety from the proximal cecum to distal end: No Is the appendix compressible: Yes Does the appendix wall appear hypervascular: No Is an appendicolith present: No Is there inflammatory changes or free fluid present: No No rebound tenderness, no fevers IMPRESSION: Appendix appears to be visualized and appears normal.
[2018-05-26] MEDS ORDERED: cefTRIAXone IN SWFI 2,000 MG/20 ML SYRINGE IVP STA (00:39)
[2018-05-26] MEDS ORDERED: NALOXONE 0.4 MG/ML 1 ML VIAL IV PRN (00:48)
[2018-05-26] MEDS ORDERED: MORPHINE SULFATE 4 MG/ML SYRINGE IV PRN (00:48)
[2018-05-26] MEDS: SODIUM CHLORIDE 0.9% 1,000 ML IV SCH ×2 (01:19→10:23)
[2018-05-26 02:23] VITALS: BMI 24.1
[2018-05-26] MEDS ORDERED: METOCLOPRAMIDE 5 MG/ML 2 ML VIAL IVP SCH (03:15)
[2018-05-26] MEDS ORDERED: METOCLOPRAMIDE 5 MG/ML 2 ML VIAL IVP PRN (03:15)
[2018-05-26] MEDS: ACETAMINOPHEN TAB 325 MG TAB PO PRN ×2 (07:17→19:43)
[2018-05-26 12:21] LABS: Glucose,Whole Blood 101 mg/dL (75-99)
[2018-05-26 12:32] VITALS: RESP 16
[2018-05-26] MEDS: D5-0.9% NACL WITH KCL 20 MEQ/L 1,000 ML IV SCH ×2 (12:46→21:16)
--- NOTE | 2018-05-26 15:26 | P.OBCN ---
History of Present Illness Consult date: 05/26/18 Reason for consult: pelvic pain, early problem History of present illness: The patient is a 23-year-old 3 para 2001 who presented to the emergency room this morning with a 4 day history of acute onset right lower quadrant pain. There was no precipitating event and it came on quite quickly and has been severe causing her to see him the position on multiple occasions. She does report that the pain waxes and wanes to some extent and is worse as the day wears on. She has also had fairly significant nausea and vomiting over the same period of time. She was unaware that she was which was confirmed in the emergency room. Ultrasound demonstrates a single intrauterine which appears normal at 8 weeks and 6 days with a last menstrual period making her 8 weeks and 4 days. She has had no vaginal bleeding. She denies fever but has been unable to tolerate anything by mouth for several days. In the emergency room, white blood cell count was elevated and urine demonstrated 2+ ketones with no other significant findings. She carries no history of nephrolithiasis and denies any GI concerns aside from the recent onset of nausea. Obstetrical history: 3 para 2001 with 2 term vaginal deliveries without complications. The remainder of the history is as listed in history of present illness. Gynecologic history: Unremarkable with no history of any infections to include STDs. Review of Systems Review of systems is confined to history of present illness. Past Medical History Past Medical History: Eye Disorder Additional Past Medical History / Comment(s): hypoglycemia. DIPLOPIA History of Any Multi-Drug Resistant Organisms: None Reported Past Surgical History: No Surgical Hx Reported Additional Past Surgical History / Comment(s): cyst removed. RT EYE SX FOR DIPLOPIA 09/2017, 04/2018 Past Anesthesia/Blood Transfusion Reactions: No Reported Reaction Past Psychological History: Anxiety Additional Psychological History / Comment(s): zoloft at beginning of - not currently medicated Smoking Status: Current every day smoker Past Alcohol Use History: Occasional Additional Past Alcohol Use History / Comment(s): SMOKES 1 PACK PER WEEK SINCE AGE 16 Past Drug Use History: Marijuana Additional Drug Use History / Comment(s): marijuana use about 1x per week per pt - Past Family History Father Additional Family Medical History / Comment(s): pacemaker, glaucoma, scoliosis Mother Family Medical History: Cancer Additional Family Medical History / Comment(s): MS, breast ca Medications and Allergies Home Medications Medication Instructions Recorded Confirmed Type No Known Home Medications 01/22/18 05/26/18 History Allergies Allergy/AdvReac Type Severity Reaction Status Date / Time No Known Allergies Allergy Verified 05/26/18 08:53 Exam Vital Signs Temp Pulse Pulse Resp BP BP Pulse Ox 05/26/18 11:13 98.2 F 63 16 109/66 97 05/26/18 08:38 98.2 F 98 18 104/65 98 05/26/18 02:10 98.2 F 59 L 18 100/60 98 05/26/18 01:21 97.9 F 63 18 118/59 96 05/25/18 20:19 98.2 F 81 20 144/64 98 Intake and Output 05/26/18 05/26/18 05/26/18 06:59 14:59 22:59 Intake Total 400 Balance 400 Intake: Oral 400 Other: # Voids 3 # Emes[place] 1 Weight 65.771 kg In general, this is a well-developed, well-nourished white female in no apparent distress. Her heart has a regular rhythm and rate without murmur. Her lungs are clear to auscultation bilaterally in all wilson. Her abdomen is nondistended, is soft, with moderate tenderness primarily in the right lower quadrant though there is diffuse mild or tenderness throughout the remainder of the abdominal examination, most focused in the bilateral lower quadrants and, as noted above, more significant in the right lower quadrant and suprapubically. I am unable to appreciate any hernias, specifically in the right inguinal region. There is slight guarding but no rebound. Her extremities without any cyanosis, clubbing, or edema and are nontender to palpation bilaterally. Pelvic examination demonstrates no bladder tenderness. There is minimal cervical motion tenderness. Uterus is approximately 8 weeks in size, slightly anteverted, mobile, slightly tender, and normal in shape. The left adnexa is nontender without any apparent mass while the right adnexa is moderately tender with no apparent mass. Results Result Diagrams: 05/25/18 21:04 05/25/18 21:04 Abnormal Lab Results - Last 24 Hours (Table) 05/25/18 05/25/18 05/25/18 Range/Units 21:04 21:04 21:40 WBC 17.2 H (3.8-10.6) k/uL Neutrophils # 13.1 H (1.3-7.7) k/uL Chloride 108 H (98-107) mmol/L Carbon Dioxide 21 L (22-30) mmol/L BUN 5 L (7-17) mg/dL Creatinine 0.50 L (0.52-1.04) mg/dL POC Glucose (mg/dL) (75-99) mg/dL Urine Appearance Turbid H (Clear) Urine Protein Trace H (Negative) Urine Ketones 2+ H (Negative) Urine Mucus Rare H (None) /hpf 05/26/18 Range/Units 12:17 WBC (3.8-10.6) k/uL Neutrophils # (1.3-7.7) k/uL Chloride (98-107) mmol/L Carbon Dioxide (22-30) mmol/L BUN (7-17) mg/dL Creatinine (0.52-1.04) mg/dL POC Glucose (mg/dL) 101 H (75-99) mg/dL Urine Appearance (Clear) Urine Protein (Negative) Urine Ketones (Negative) Urine Mucus (None) /hpf Microbiology - Last 24 Hours (Table) 05/25/18 21:40 Urine Culture - Preliminary Urine,Clean Catch Assessment and Plan (1) Abdominal pain Current Visit: Yes Status: Acute Code(s): R10.9 - UNSPECIFIED ABDOMINAL PAIN SNOMED Code(s): 90763931 (2) Current Visit: Yes Status: Acute Code(s): Z34.90 - ENCNTR FOR SUPRVSN OF NORMAL , UNSP, UNSP TRIMESTER SNOMED Code(s): 26092316 Plan: The etiology of the pain is unclear at this time. The location of her pain as well as its description is consistent with a possible undiagnosed kidney stone traversing the right ureter. This would account for both the acute pain lasting for 4 days as well as elevated white count. There is no apparent blood in the urine however. In either case, as she is unable to tolerate either solids or liquids well, I will increase her IV rate to 125 mL per hour as the urinalysis did demonstrate significant dehydration. Additionally I have asked the nurses to strain her urine for a possible stone. We will continue to follow but I see no evidence of an etiology from a standpoint aside from the nausea which may be secondary to rapid rise in hormone level.
--- NOTE | 2018-05-26 16:22 | P.GSCN ---
History of Present Illness Consult date: 05/26/18 Reason for Consult: Abdominal pain History of present illness: This is a 23-year-old female who's had some complaints of some lower quadrant abdominal pain. Patient states that she had some crampy pain. She currently is hungry and states her pain has resolved. The patient is 8 weeks . Past Medical History Past Medical History: Eye Disorder Additional Past Medical History / Comment(s): hypoglycemia. DIPLOPIA History of Any Multi-Drug Resistant Organisms: None Reported Past Surgical History: No Surgical Hx Reported Additional Past Surgical History / Comment(s): cyst removed. RT EYE SX FOR DIPLOPIA 09/2017, 04/2018 Past Anesthesia/Blood Transfusion Reactions: No Reported Reaction Past Psychological History: Anxiety Additional Psychological History / Comment(s): zoloft at beginning of - not currently medicated Smoking Status: Current every day smoker Past Alcohol Use History: Occasional Additional Past Alcohol Use History / Comment(s): SMOKES 1 PACK PER WEEK SINCE AGE 16 Past Drug Use History: Marijuana Additional Drug Use History / Comment(s): marijuana use about 1x per week per pt - Past Family History Father Additional Family Medical History / Comment(s): pacemaker, glaucoma, scoliosis Mother Family Medical History: Cancer Additional Family Medical History / Comment(s): MS, breast ca Medications and Allergies Home Medications Medication Instructions Recorded Confirmed Type No Known Home Medications 01/22/18 05/26/18 History Allergies Allergy/AdvReac Type Severity Reaction Status Date / Time No Known Allergies Allergy Verified 05/26/18 08:53 Surgical - Exam Vital Signs Temp Pulse Resp BP Pulse Ox 98.2 F 81 20 144/64 98 05/25/18 20:19 05/25/18 20:19 05/25/18 20:19 05/25/18 20:19 05/25/18 20:19 - General well developed, no distress - ENT normal pinna - Neck no masses - Respiratory normal expansion - Cardiovascular Rhythm: regular - Abdomen Abdomen: non tender Results - Labs 05/25/18 21:04 05/25/18 21:04 Abnormal Lab Results - Last 24 Hours (Table) 05/25/18 05/25/18 05/25/18 Range/Units 21:04 21:04 21:40 WBC 17.2 H (3.8-10.6) k/uL Neutrophils # 13.1 H (1.3-7.7) k/uL Chloride 108 H (98-107) mmol/L Carbon Dioxide 21 L (22-30) mmol/L BUN 5 L (7-17) mg/dL Creatinine 0.50 L (0.52-1.04) mg/dL POC Glucose (mg/dL) (75-99) mg/dL Urine Appearance Turbid H (Clear) Urine Protein Trace H (Negative) Urine Ketones 2+ H (Negative) Urine Mucus Rare H (None) /hpf 05/26/18 Range/Units 12:17 WBC (3.8-10.6) k/uL Neutrophils # (1.3-7.7) k/uL Chloride (98-107) mmol/L Carbon Dioxide (22-30) mmol/L BUN (7-17) mg/dL Creatinine (0.52-1.04) mg/dL POC Glucose (mg/dL) 101 H (75-99) mg/dL Urine Appearance (Clear) Urine Protein (Negative) Urine Ketones (Negative) Urine Mucus (None) /hpf Microbiology - Last 24 Hours (Table) 05/25/18 21:40 Urine Culture - Preliminary Urine,Clean Catch Diabetes panel 05/25/18 Range/Units 21:04 Sodium 138 (137-145) mmol/L Potassium 4.0 (3.5-5.1) mmol/L Chloride 108 H (98-107) mmol/L Carbon Dioxide 21 L (22-30) mmol/L BUN 5 L (7-17) mg/dL Creatinine 0.50 L (0.52-1.04) mg/dL Glucose 90 (74-99) mg/dL Calcium 9.6 (8.4-10.2) mg/dL AST 20 (14-36) U/L ALT 30 (9-52) U/L Alkaline Phosphatase 56 (38-126) U/L Total Protein 7.0 (6.3-8.2) g/dL Albumin 4.3 (3.5-5.0) g/dL Calcium panel 05/25/18 Range/Units 21:04 Calcium 9.6 (8.4-10.2) mg/dL Albumin 4.3 (3.5-5.0) g/dL Pituitary panel 05/25/18 Range/Units 21:04 Sodium 138 (137-145) mmol/L Potassium 4.0 (3.5-5.1) mmol/L Chloride 108 H (98-107) mmol/L Carbon Dioxide 21 L (22-30) mmol/L BUN 5 L (7-17) mg/dL Creatinine 0.50 L (0.52-1.04) mg/dL Glucose 90 (74-99) mg/dL Calcium 9.6 (8.4-10.2) mg/dL Adrenal panel 05/25/18 Range/Units 21:04 Sodium 138 (137-145) mmol/L Potassium 4.0 (3.5-5.1) mmol/L Chloride 108 H (98-107) mmol/L Carbon Dioxide 21 L (22-30) mmol/L BUN 5 L (7-17) mg/dL Creatinine 0.50 L (0.52-1.04) mg/dL Glucose 90 (74-99) mg/dL Calcium 9.6 (8.4-10.2) mg/dL Total Bilirubin 0.2 (0.2-1.3) mg/dL AST 20 (14-36) U/L ALT 30 (9-52) U/L Alkaline Phosphatase 56 (38-126) U/L Total Protein 7.0 (6.3-8.2) g/dL Albumin 4.3 (3.5-5.0) g/dL Assessment and Plan Assessment: Resolved abdominal pain. 8 weeks . Patient will have a regular diet started. No surgical intervention is planned. I recommend discharge home.
--- NOTE | 2018-05-26 16:41 | HP ---
HISTORY AND PHYSICAL DATE OF SERVICE: 05/26/2018 CHIEF COMPLAINT: Abdominal pain. HISTORY OF PRESENT ILLNESS: This 23-year-old woman with a past medical history of multiple medical problems including hypoglycemia, history of diplopia, history of anxiety, history of THC , being followed by Dr. Marte in the outpatient setting, was complaining of abdominal pain. The pain was present for the last several days. The pain is felt mostly in the lower part of the abdomen and also mainly on the abdomen to the left side. The patient also has some nausea. Patient unable to keep anything down for several days according to her. The patient is also 8 weeks , being followed by Dr. Shelby. After admission, ultrasound of the abdomen did not show any evidence of any appendix inflammation. The ultrasound showed a viable . There is no history of any fever, rigors or chills. No history of headache, loss of consciousness, seizures. PAST MEDICAL HISTORY: Of hypoglycemia, diplopia, history of anxiety. MEDICATIONS: Prior to admission include home medications are none. ALLERGIES: None. The patient being followed by Dr. Marte in the outpatient setting. FAMILY HISTORY: Family history of with breast cancer. SOCIAL HISTORY: History of THC, history of smoking. REVIEW OF SYSTEMS: ENT: No diminished vision or hearing. Cardio system: No angina or palpitations. Respiratory: No cough. GI as mentioned earlier. as mentioned earlier. central nervous system: No numbness or weakness. Allergy/Immunology: No asthma or hayfever. Musculoskeletal as mentioned earlier. Hematology/Oncology: No history of anemia. Endocrine: No history of diabetes or hypothyroidism. CONSTITUTIONAL: As mentioned earlier. Dermatology: Negative. Rheumatology: Negative. Psychiatry: As mentioned earlier. PHYSICAL EXAMINATION: Alert and oriented times three. Pulse is 63, blood pressure 109/63, respirations 16, temperature 98.2, pulse ox 97% on room air. HEENT: Conjunctivae normal. Oral mucosa moist. NECK is no jugular venous distention. No carotid bruit. No lymph node enlargement. CARDIOVASCULAR: S1-S2. No S3, no S4. RESPIRATORY: Breath sounds diminished in the bases. No rhonchi and no crackles. ABDOMEN: Soft. Mild diffuse tenderness in the lower part of the hypogastrium and as well as the right lower quadrant present. No guarding. No rigidity. No mass palpable. Bowel sounds present. No ascites. LEGS: No edema and no swelling. NERVOUS SYSTEM: Higher functions as mentioned earlier. Moves all four extremities. No focal motor or sensory deficits. LYMPHATICS: No lymph nodes palpable in the neck , axillae or groin. SKIN: No ulcer, rash or bleeding. LABS: WBC 17.8, hemoglobin 15.2, sodium 138, creatinine 0.50. UA noted. HCG noted. Ultrasound noted. ASSESSMENT: 1. Lower abdominal pain for evaluation. 2. Increased WBC. 3. Eight weeks . 4. History of diplopia. 5. History of hypoglycemia. 6. History of anxiety. 7. History of nicotine dependence. 8. History of THC. 9. FULL CODE. RECOMMENDATIONS AND DISCUSSION: In this 23-year-old woman who presented with multiple complex medical issues, at this time, I recommend to continue the current medications, management and symptomatic treatment. Otherwise, at this time, I would recommend blood cultures and 1 dose of antibiotics has been given. I would recommend Infectious Disease and surgical evaluation and [employer] will also be requested to follow up the patient. Otherwise repeat labs are ordered and the exact etiology of presenting symptoms are unknown at this time. The patient apparently had similar symptoms during her first as well. Prognosis guarded. Further recommendations to follow. Discussed with the patient. A copy of dictation will be forwarded to Dr. Mrate who is the primary physician. DVT prophylaxis. MMANYGL / NIDIAN: [id number] / MTDD
[2018-05-26 16:58] LABS: Glucose,Whole Blood 95 mg/dL (75-99)
[2018-05-26] MEDS: FAMOTIDINE 20 MG/2 ML VIAL IV SCH (20:46)
[2018-05-26 21:17] LABS: Glucose,Whole Blood 91 mg/dL (75-99)
[2018-05-27] MEDS: D5-0.9% NACL WITH KCL 20 MEQ/L 1,000 ML IV SCH (04:33)
[2018-05-27] MEDS: ACETAMINOPHEN TAB 325 MG TAB PO PRN (04:52)
[2018-05-27 06:17] LABS: Glucose,Whole Blood 84 mg/dL (75-99)
--- NOTE | 2018-05-27 06:35 | CONS ---
CONSULTATION DATE OF SERVICE: 05/26/2018 REASON FOR CONSULTATION: Leukocytosis. HISTORY OF PRESENT ILLNESS: The patient is a 23-year-old female who presented to the hospital with chief complaints of pain in the right lower abdominal area. The pain has been going on for about 3 days prior to presentation to hospital. The patient has felt nauseated with episode of vomiting. The patient denies having any diarrhea or any constipation. The patient denies having any burning or frequency of urine. The patient denies having any fever, rigors or chills. With these symptoms, the patient has been evaluated by the ER physician. The patient did have a ultrasound of that area that was negative to be suspicious for any acute appendicitis. The patient has been afebrile. However, she has been noticed to have elevated white count 17.2 thousand. Further workup did show that the patient's HCG of the blood was positive. Her UA was negative. The patient was found to be 8 weeks . REVIEW OF SYSTEMS: CONSTITUTIONAL: Positive for weakness, but no fever. EYES: No complaint. ENT: No complaint. RESPIRATORY: No complaint. CARDIOVASCULAR: No complaint. GENITOURINARY: No complaint. GASTROINTESTINAL: As per HPI. MUSCULOSKELETAL: No complaint. INTEGUMENTARY: No complaint. PSYCHOLOGICAL: No complaint. ENDOCRINE: No complaint. NEUROLOGIC: No complaint. PAST MEDICAL HISTORY: Her past medical history is significant for diplopia and hypoglycemia. PAST SURGICAL HISTORY: Cyst removed from the right eye and right eye surgery. SOCIAL HISTORY: The patient is currently an every day smoker. Occasional drinks and admitted to marijuana use. FAMILY HISTORY: No pertinent findings noticed. ALLERGIES: No known drug allergies. MEDICATION: Medications include the patient is currently on Tylenol, Pepcid, Reglan, Narcan, did receive a 2 gram dose of Rocephin this morning. PHYSICAL EXAMINATION: On examination, her blood pressure is 117/61 with a pulse of 68, temperature 98.6. She is 97% on room air. General description is a middle-aged female lying in bed in no distress. No tachypnea or accessory muscle of respiration use. HEENT examination shows no pallor or scleral icterus. Oral mucous membrane is dry. No pharyngeal erythema or thrush. NECK: Trachea central. No thyromegaly. LUNGS: Unlabored breathing. Clear to auscultation anteriorly. No wheeze or crackle. HEART: S1, S2. Regular rate and rhythm. ABDOMEN: Soft. She is mildly tender in right lower quadrant. No guarding or rigidity. No organomegaly. EXTREMITIES: No edema of feet. SKIN EXAMINATION: No rash or mass palpable. NEUROLOGICAL: Patient is awake, alert, oriented. Mood and affect normal. LABS: Hemoglobin 15.2, white count 17.2 with BUN of 5, creatinine 0.50. UA has been negative. Urine HCG as well as blood HCG has been positive. Ultrasound of the right lower quadrant negative for any evidence of appendicitis. DIAGNOSTIC IMPRESSION AND PLAN: Patient with leukocytosis in patient admitted to the hospital with abdominal pain. Pain has been mostly in the right lower quadrant area. The patient subsequent workup did show she is 8 weeks . The patient is currently not running any fever. UA has been negative. Ultrasound was negative for any suspicious for possible appendicitis with a questionable source of abdominal pain kidney stones, but no definite focus of infection. PLAN: 1. We will monitor the patient closely off antibiotic therapy as clinically no clear focus of infection and the patient is 8 weeks . 2. RN has been advised if the patient spikes any fever to let me know right away at that point. Patient will be recultured and started on appropriate antibiotic. 3. Depending upon her clinical response as well as cultures will further adjust her medication if needed. Thank you for this consultation. Will follow this patient along with you. MMANGYL / IJN: [id number] /
[2018-05-27 07:04] LABS: Basophils % (A) 0 %; Eosinophils # (A) 0.3 k/uL (0-0.7); Eosinophils % (A) 3 %; HCT 37.3 % (34.0-46.0); Lymphocytes # (A) 2.5 k/uL (1.0-4.8); Lymphocytes % (A) 25 %; MCH 29.3 pg (25.0-35.0); MCHC 32.7 g/dL (31.0-37.0); MCV 89.8 fL (80.0-100.0); Mean Platelet Volume 6.5; Monocytes # (A) 0.7 k/uL (0-1.0); Monocytes % (A) 7 %; Neutrophils # (A) 6.3 k/uL (1.3-7.7); Neutrophils % (A) 63 %; Platelet Count 281 k/uL (150-450); RBC 4.16 m/uL (3.80-5.40)
[2018-05-27 07:14] LABS: Anion Gap 6 mmol/L; Blood Urea Nitrogen 5 mg/dL (7-17); Calcium 8.4 mg/dL (8.4-10.2); Carbon Dioxide 21 mmol/L (22-30); Chloride 112 mmol/L (98-107); Glucose 80 mg/dL (74-99); Potassium 4.3 mmol/L (3.5-5.1); Sodium 139 mmol/L (137-145)
[2018-05-27 07:15] LABS: HGB 12.2 gm/dL (11.4-16.0)
--- NOTE | 2018-05-27 08:33 | P.PN ---
Subjective Progress Note Date: 05/27/18 The patient reports a moderate pain improvement and complete resolution of nausea overnight. She has not passed the stone to her knowledge or the nursing staff's. She is now tolerating both liquids and solids without further nausea. She denies any further significant symptoms though her abdominal pain does remain in place and now appears to be consistent with musculoskeletal pain from constant retching. Objective - Vital Signs Vital signs: Vital Signs Temp 98.6 F 05/26/18 21:09 Pulse 60 05/26/18 21:09 Resp 16 05/26/18 21:09 BP 117/61 05/26/18 21:09 Pulse Ox 97 05/26/18 21:09 Intake & Output 05/26/18 05/27/18 05/27/18 18:59 06:59 18:59 Intake Total 400 2040 Balance 400 2040 Intake: Oral 400 2040 Other: # Voids 3 # Emeses 1 - Exam In general, this is a well-developed, well-nourished white female in no acute distress. Her heart has a regular rhythm and rate without murmur. Her lungs are clear to auscultation bilaterally in all wilson. Her abdomen is nondistended, has normal active bowel sounds, is soft, with minimal and significantly decreased tenderness primarily in the right lower quadrant but still generalized to the remainder of the abdomen. Her extremities are without any cyanosis, clubbing, or edema and are nontender to palpation bilaterally. - Labs CBC & Chem 7: 05/27/18 06:40 05/27/18 06:40 Labs: Abnormal Lab Results - Last 24 Hours (Table) 05/26/18 05/27/18 Range/Units 12:17 06:40 Chloride 112 H (98-107) mmol/L Carbon Dioxide 21 L (22-30) mmol/L BUN 5 L (7-17) mg/dL POC Glucose (mg/dL) 101 H (75-99) mg/dL Microbiology - Last 24 Hours (Table) 05/25/18 21:40 Urine Culture - Preliminary Urine,Clean Catch Assessment and Plan (1) Abdominal pain Current Visit: Yes Status: Acute Code(s): R10.9 - UNSPECIFIED ABDOMINAL PAIN SNOMED Code(s): 61985124 (2) Current Visit: Yes Status: Acute Code(s): Z34.90 - ENCNTR FOR SUPRVSN OF NORMAL , UNSP, UNSP TRIMESTER SNOMED Code(s): 60319746 Plan: Given the patient's clinical improvement and no evidence of any significant concerns from a lab or imaging perspective, I would recommend discharge this morning. There is no intervention necessary as regards the early and I have instructed her to call the office for an intake appointment and to schedule a first obstetrical appointment.
[2018-05-27 08:57] VITALS: BP 121/75; PULSE 70; TEMP 98.4
[2018-05-27] MEDS: FAMOTIDINE 20 MG/2 ML VIAL IV SCH (09:26)
[2018-05-27 12:03] LABS: Glucose,Whole Blood 77 mg/dL (75-99)
--- NOTE | 2018-05-27 15:08 | PN ---
PROGRESS NOTE DATE OF SERVICE: 05/27/2018. REASON FOR FOLLOWUP: Leukocytosis. INTERVAL HISTORY: The patient is currently afebrile. She is feeling better. Her right lower quadrant abdominal pain has improved. No nausea this morning. No vomiting. Denies any chest pain or shortness of breath or cough. The patient overall is feeling better. Wants to go home. EXAMINATION: Blood pressure 121/75 with a pulse of 73, temperature 98.4. She is 98% on room air. General description is a young female lying in bed in no distress. RESPIRATORY SYSTEM: Unlabored breathing. Clear to auscultation anteriorly. HEART: S1, S2. Regular rate and rhythm. ABDOMEN: Soft, very minimal tenderness right quadrant area. EXTREMITIES: No edema of the feet. LABS: Hemoglobin 12.2, white count normalized to 10, with a BUN of 5, creatinine 0.52. Urine culture has been negative. DIAGNOSTIC IMPRESSION AND PLAN: Patient with leukocytosis, possible reactive with no clinical focus of infection. Urine culture has been negative and the patient's white count has normalized without antibiotic therapy and recommend no antibiotic on discharge. The patient has been advised if any fever or any worsening abdominal pain to let us know right away. MMODL / IJN: [id number] /
--- NOTE | 2018-05-27 17:41 | DS ---
DISCHARGE SUMMARY FINAL DIAGNOSES: 1. Abdominal pain of undetermined etiology. Possibly urolithiasis. 2. 8 weeks . 3. Increased WBC, improved, possibly reactive. 4. History of diplopia. 5. History of hypoglycemia. 6. History of anxiety. 7. Significant history of THC. 8. FULL CODE. DISCHARGE DISPOSITION: The patient is being discharged in stable condition with guarded prognosis. HISTORY OF PRESENT ILLNESS: This 23-year-old woman with a past medical history of multiple medical problems being followed by Dr. Marte and Dr. Shelby in the outpatient setting was admitted with lower abdominal pain. The patient had elevated blood count also. Cultures are negative. Patient was evaluated by multiple consultants. Ultrasound showed no evidence of any appendicitis. The patient improved significantly and the patient is being discharged in stable condition with guarded prognosis. On exam, vitals are stable. Cardiovascular S1, S2. Abdomen soft nontender. Central nervous system: No focal deficits. DISCHARGE ADVICE AND MEDICATIONS: 1. vitamins. 2. Twenty-four hour fluids. 3. Follow up with Dr. Marte, Dr. Shelby and consultants as advised. MMODL / IJN: [id number] /
== END 2018-05-27 13:00 | disposition home or self-care (01) ==
LOC: EC 20:13 → 6PED 05-26 01:45
PROVIDERS: ADMIT Internal Medicine; ATTEND Internal Medicine
DX: O26.891 Other specified pregnancy related conditions, first trimester (principal); Z3A.08 8 weeks gestation of pregnancy; O99.111 Other diseases of the blood and blood-forming organs and certain disorders involving the immune mechanism complicating pregnancy, first trimester; D72.829 Elevated white blood cell count, unspecified; R10.2 Pelvic and perineal pain; R10.31 Right lower quadrant pain; R10.32 Left lower quadrant pain; O21.9 Vomiting of pregnancy, unspecified; E86.0 Dehydration; O99.331 Smoking (tobacco) complicating pregnancy, first trimester; F17.210 Nicotine dependence, cigarettes, uncomplicated; O99.321 Drug use complicating pregnancy, first trimester; F12.90 Cannabis use, unspecified, uncomplicated; H53.2 Diplopia; F41.9 Anxiety disorder, unspecified; Z80.3 Family history of malignant neoplasm of breast; Z82.49 Family history of ischemic heart disease and other diseases of the circulatory system; Z83.511 Family history of glaucoma; Z82.69 Family history of other diseases of the musculoskeletal system and connective tissue
CPT/HCPCS: 36415; 76705; 76801; 80048; 80053; 81001; 81025; 82150; 83690; 84702; 85025; 87040; 87086; 96361; 96374; 96375; 96376; 99285

== ENCOUNTER 2019-07-10 19:39 | Emergency (ER) | payer OTHER ==
[2019-07-10] MEDS ORDERED: IPRATROPIUM-ALBUTEROL 3 ML NEB INHALATION STA (20:09)
[2019-07-10 20:37] LABS: Basophils # (A) 0.1 k/uL (0-0.2); Basophils % (A) 1 %; Eosinophils # (A) 0.2 k/uL (0-0.7); Eosinophils % (A) 1 %; HCT 40.3 % (34.0-46.0); HGB 13.9 gm/dL (11.4-16.0); Lymphocytes # (A) 1.5 k/uL (1.0-4.8); Lymphocytes % (A) 9 %; MCH 30.9 pg (25.0-35.0); MCHC 34.4 g/dL (31.0-37.0); Mean Platelet Volume 6.6; Monocytes # (A) 0.5 k/uL (0-1.0); Monocytes % (A) 3 %; Neutrophils # (A) 13.9 k/uL (1.3-7.7); Neutrophils % (A) 85 %; Platelet Count 367 k/uL (150-450); RBC 4.48 m/uL (3.80-5.40); RDW 14.8 % (11.5-15.5); WBC 16.3 k/uL (3.8-10.6)
[2019-07-10 20:38] LABS: Appearance,Urine Clear (Clear); Bacteria,Urine Occasional /hpf; Bilirubin,Urine Negative (Negative); Blood,Urine Negative (Negative); Color,Urine Yellow; Glucose,Urine (UA) Negative (Negative); Ketones,Urine Trace (Negative); Leukocyte Esterase,Urine Small (Negative); Mucus,Urine Moderate /hpf; Nitrite,Urine Negative (Negative); Protein,Urine 1+ (Negative); RBC,Urine 1 /hpf (0-5); Specific Gravity,Urine 1.022 (1.001-1.035); Squamous Epithelial Cell,Urine 5 /hpf (0-4); Urobilinogen,Urine <2.0 mg/dL (<2.0); WBC,Urine 2 /hpf (0-5)
[2019-07-10 20:43] LABS: ALT 9 U/L (9-52); AST 17 U/L (14-36); African American GFR (CKD) >90 (>60 ml/min/1.73 sqM); Albumin 3.9 g/dL (3.5-5.0); Alkaline Phosphatase 70 U/L (38-126); Anion Gap 9 mmol/L; Blood Urea Nitrogen 5 mg/dL (7-17); Calcium 9.2 mg/dL (8.4-10.2); Carbon Dioxide 21 mmol/L (22-30); Chloride 109 mmol/L (98-107); Glucose 88 mg/dL (74-99); Potassium 3.5 mmol/L (3.5-5.1); Sodium 139 mmol/L (137-145); Total Bilirubin 0.4 mg/dL (0.2-1.3); Total Protein 6.8 g/dL (6.3-8.2)
--- NOTE | 2019-07-10 21:02 | XR ---
EXAMINATION TYPE: XR chest 2V DATE OF EXAM: 07/10/2019 COMPARISON: 10/30/2015 HISTORY: Cough TECHNIQUE: Frontal and lateral views of the chest are obtained. FINDINGS: Heart and mediastinum are normal. Lungs are clear. Diaphragm is normal. Bony thorax is int act. There is no pleural effusion. There is slight upper thoracic levoscoliosis. IMPRESSION: No cardiopulmonary disease. Normal heart. No change.
--- NOTE | 2019-07-10 22:03 | ED ---
General Adult HPI - General Chief complaint: Upper Respiratory Infection Stated complaint: NORM Time Seen by Provider: 07/10/19 19:59 Source: patient, RN notes reviewed, old records reviewed Mode of arrival: wheelchair Limitations: no limitations - History of Present Illness Initial comments: 24-year-old female patient past history significant for presents to ED with chief complaint of 2 days of cough, congestion, shortness of breath while coughing. She reports that she has pain while coughing. Patient reports that she took a test one week ago which was positive. Patient states she has not no when her last menstrual period was due to irregular cycle. Patient denies any abdominal pain or vaginal bleeding does report that he has had some nausea with emesis. Patient denies any other complaints at this time. Systemic: Pt denies fatigue, fever/chills, rash. Pt denies weakness, night sweats, weight loss. Neuro: Pt denies headache, visual disturbances, syncope or pre-syncope. HEENT: Pt denies ocular discharge or irritation, otalgia, rhinorrhea, pharyngitis or notable lymphadenopathy. Cardiopulmonary: Pt denies heart palpitations, dyspnea on exertion. Abdominal/GI: Pt denies abdominal pain, n/v/d. : Pt denies dysuria, burning w/ urination, frequency/urgency. Denies new onset urinary or bowel incontinence. MSK: Pt denies myalgia, loss of strength or function in extremities. Neuro: Pt denies new onset weakness, paresthesias. - Related Data Previous Rx's Medication Instructions Recorded Pnv No.95/Ferrous Fum/Folic AC 1 each PO DAILY #1 bottle 05/27/18 [ Multivitamin Tablet] Albuterol Inhaler [Ventolin Hfa 1 - 2 puff INHALATION Q4-6H PRN #1 07/10/19 Inhaler] inhaler Cephalexin [Keflex] 500 mg PO Q12HR 7 Days cap 07/10/19 Pnv No.95/Ferrous Fum/Folic AC 1 each PO Q24HR 30 Days #30 tablet 07/10/19 [ Multivitamin Tablet] Allergies Allergy/AdvReac Type Severity Reaction Status Date / Time No Known Allergies Allergy Verified 07/10/19 19:47 Review of Systems ROS Statement: Those systems with pertinent positive or pertinent negative responses have been documented in the HPI. ROS Other: All systems not noted in ROS Statement are negative. Past Medical History Past Medical History: Eye Disorder Additional Past Medical History / Comment(s): hypoglycemia. DIPLOPIA History of Any Multi-Drug Resistant Organisms: None Reported Past Surgical History: No Surgical Hx Reported Additional Past Surgical History / Comment(s): cyst removed. RT EYE SX FOR DIPLOPIA 09/2017, 04/2018 Past Anesthesia/Blood Transfusion Reactions: No Reported Reaction Past Psychological History: Anxiety Smoking Status: Current every day smoker Past Alcohol Use History: Occasional Past Drug Use History: Marijuana - Past Family History Father Additional Family Medical History / Comment(s): pacemaker, glaucoma, scoliosis Mother Family Medical History: Cancer Additional Family Medical History / Comment(s): MS, breast ca General Exam - General Exam Comments Initial Comments: Constitutional: NAD, AOX3, Pt has pleasant affect. HEENT: NC/AT, trachea midline, neck supple, no lymphadenopathy. Posterior pharynx non erythematous, without exudates. External ears appear normal, without discharge. Mucous membranes moist. Eyes PERRLA, EOM intact. There is no scleral icterus. No pallor noted. Cardiopulmonary: RRR, no murmurs, rubs or gallops, no JVD noted. Lungs CTAB in anterior and posterior wilson. No peripheral edema. Abdominal exam: Abdomen soft and non-distended. Abdomen non-tender to palpation in all 4 quadrants. Bowel sounds active in LLQ. No hepatosplenomegaly. No ec chymosis Neuro: CN II-XII grossly intact. No nuchal rigidity. No raccon eyes, no dean sign, no hemotympanum. No cervical spinal tenderness. MSK: No posterior calf tenderness bilaterally, homans sign negative bilaterally. Posterior tibialis and radial pulse +2 bilaterally. Sensation intact in upper and lower extremities. Full active ROM in upper and lower extremities, 5/5 stregnth. Limitations: no limitations Course Vital Signs 07/10/19 07/10/19 07/10/19 19:45 20:23 20:32 Temperature 98.2 F Pulse Rate 88 72 76 Respiratory 16 Rate Blood Pressure 116/74 O2 Sat by Pulse 99 Oximetry Medical Decision Making - Medical Decision Making 24-year-old female patient past history significant for presents to ED with chief complaint of 2 days of cough, congestion, shortness of breath while coughing. She reports that she has pain while coughing. Patient reports that she took a test one week ago which was positive. Patient states she has not no when her last menstrual period was due to irregular cycle. Patient denies any abdominal pain or vaginal bleeding does report that he has had some nausea with emesis. Patient denies any other complaints at this time. Patient vital signs stable, afebrile. Physical exam did not split pathology. Laboratory investigations revealed mild leukocytosis of 16. Otherwise noncompressive. UA displayed asymptomatic bacteria HCG positive. HCG Quant is pending. Troponin negative. EKG not concerning for acute ischemia. Chest x- ray negative. Patient feeling much improved after breathing treatment. Patient likely has bronchitis syndrome. Patient will be discharged with inhaler, Keflex for asymptomatic bacteriuria. Patient will follow-up with Roberto turner public health doctor. Patient return to ER if condition worsens. Case discussed in depth with Dr. Corcoran. - Lab Data Result diagrams: 07/10/19 20:25 07/10/19 20:25 Lab Results 07/10/19 07/10/19 07/10/19 Range/Units 20:25 20:25 20:25 WBC 16.3 H (3.8-10.6) k/uL RBC 4.48 (3.80-5.40) m/uL Hgb 13.9 (11.4-16.0) gm/dL Hct 40.3 (34.0-46.0) % MCV 90.0 (80.0-100.0) fL MCH 30.9 (25.0-35.0) pg MCHC 34.4 (31.0-37.0) g/dL RDW 14.8 (11.5-15.5) % Plt Count 367 (150-450) k/uL Neutrophils % 85 % Lymphocytes % 9 % Monocytes % 3 % Eosinophils % 1 % Basophils % 1 % Neutrophils # 13.9 H (1.3-7.7) k/uL Lymphocytes # 1.5 (1.0-4.8) k/uL Monocytes # 0.5 (0-1.0) k/uL Eosinophils # 0.2 (0-0.7) k/uL Basophils # 0.1 (0-0.2) k/uL Sodium 139 (137-145) mmol/L Potassium 3.5 (3.5-5.1) mmol/L Chloride 109 H (98-107) mmol/L Carbon Dioxide 21 L (22-30) mmol/L Anion Gap 9 mmol/L BUN 5 L (7-17) mg/dL Creatinine 0.49 L (0.52-1.04) mg/dL Est GFR (CKD-EPI)AfAm >90 (>60 ml/min/1.73 sqM) Est GFR (CKD-EPI)NonAf >90 (>60 ml/min/1.73 sqM) Glucose 88 (74-99) mg/dL Calcium 9.2 (8.4-10.2) mg/dL Total Bilirubin 0.4 (0.2-1.3) mg/dL AST 17 (14-36) U/L ALT 9 (9-52) U/L Alkaline Phosphatase 70 (38-126) U/L Troponin I (0.000-0.034) ng/mL Total Protein 6.8 (6.3-8.2) g/dL Albumin 3.9 (3.5-5.0) g/dL Urine Color Urine Appearance (Clear) Urine pH (5.0-8.0) Ur Specific [place] (1.001-1.035) Urine Protein (Negative) Urine Glucose (UA) (Negative) Urine Ketones (Negative) Urine Blood (Negative) Urine Nitrite (Negative) Urine Bilirubin (Negative) Urine Urobilinogen (<2.0) mg/dL Ur Leukocyte Esterase (Negative) Urine RBC (0-5) /hpf Urine WBC (0-5) /hpf Ur Squamous Epith Cells (0-4) /hpf Urine Bacteria (None) /hpf Urine Mucus (None) /hpf Urine HCG, Qual Detected (Not Detectd) 07/10/19 07/10/19 Range/Units 20:25 20:25 WBC (3.8-10.6) k/uL RBC (3.80-5.40) m/uL Hgb (11.4-16.0) gm/dL Hct (34.0-46.0) % MCV (80.0-100.0) fL MCH (25.0-35.0) pg MCHC (31.0-37.0) g/dL RDW (11.5-15.5) % Plt Count (150-450) k/uL Neutrophils % % Lymphocytes % % Monocytes % % Eosinophils % % Basophils % % Neutrophils # (1.3-7.7) k/uL Lymphocytes # (1.0-4.8) k/uL Monocytes # (0-1.0) k/uL Eosinophils # (0-0.7) k/uL Basophils # (0-0.2) k/uL Sodium (137-145) mmol/L Potassium (3.5-5.1) mmol/L Chloride (98-107) mmol/L Carbon Dioxide (22-30) mmol/L Anion Gap mmol/L BUN (7-17) mg/dL Creatinine (0.52-1.04) mg/dL Est GFR (CKD-EPI)AfAm (>60 ml/min/1.73 sqM) Est GFR (CKD-EPI)NonAf (>60 ml/min/1.73 sqM) Glucose (74-99) mg/dL Calcium (8.4-10.2) mg/dL Total Bilirubin (0.2-1.3) mg/dL AST (14-36) U/L ALT (9-52) U/L Alkaline Phosphatase (38-126) U/L Troponin I <0.012 (0.000-0.034) ng/mL Total Protein (6.3-8.2) g/dL Albumin (3.5-5.0) g/dL Urine Color Yellow Urine Appearance Clear (Clear) Urine pH 8.0 (5.0-8.0) Ur Specific [place] 1.022 (1.001-1.035) Urine Protein 1+ H (Negative) Urine Glucose (UA) Negative (Negative) Urine Ketones Trace H (Negative) Urine Blood Negative (Negative) Urine Nitrite Negative (Negative) Urine Bilirubin Negative (Negative) Urine Urobilinogen <2.0 (<2.0) mg/dL Ur Leukocyte Esterase Small H (Negative) Urine RBC 1 (0-5) /hpf Urine WBC 2 (0-5) /hpf Ur Squamous Epith Cells 5 H (0-4) /hpf Urine Bacteria Occasional H (None) /hpf Urine Mucus Moderate H (None) /hpf Urine HCG, Qual (Not Detectd) - EKG Data -: EKG Interpreted by Me (and Dr. Corcoran) EKG Comments: Ventricular rate 71, TN interval 1.4, QRS 84, QT/QTc 4 times of 445. Normal sinus rhythm, normal EKG, no concern for acute ischemia. Disposition Clinical Impression: Bronchitis Disposition: HOME SELF-CARE Condition: Stable Instructions (If sedation given, give patient instructions): Acute Bronchitis (ED) Additional Instructions: Patient to adhere to previously discussed treatment plan and will take medication(s) as directed. Patient to follow up with PCP in 1-2 days. Patient to return to ED if symptoms do not improve. Follow-up with primary care provider and echo tech return to ER if condition worsens. Use albuterol inhaler as needed. Prescriptions: Cephalexin [Keflex] 500 mg PO Q12HR 7 Days cap Pnv No.95/Ferrous Fum/Folic AC [ Multivitamin Tablet] 1 each PO Q24HR 30 Days #30 tablet Albuterol Inhaler [Ventolin Hfa Inhaler] 1 - 2 puff INHALATION Q4-6H PRN #1 inhaler PRN Reason: Cough Is patient prescribed a controlled substance at d/c from ED?: No Referrals: None,Stated [Primary Care Provider] - 1-2 days
--- NOTE | 2019-07-10 22:10 | ED ---
Medical Decision Making - Lab Data Result diagrams: 07/10/19 20:25 07/10/19 20:25 Lab Results 07/10/19 07/10/19 07/10/19 Range/Units 20:25 20:25 20:25 WBC 16.3 H (3.8-10.6) k/uL RBC 4.48 (3.80-5.40) m/uL Hgb 13.9 (11.4-16.0) gm/dL Hct 40.3 (34.0-46.0) % MCV 90.0 (80.0-100.0) fL MCH 30.9 (25.0-35.0) pg MCHC 34.4 (31.0-37.0) g/dL RDW 14.8 (11.5-15.5) % Plt Count 367 (150-450) k/uL Neutrophils % 85 % Lymphocytes % 9 % Monocytes % 3 % Eosinophils % 1 % Basophils % 1 % Neutrophils # 13.9 H (1.3-7.7) k/uL Lymphocytes # 1.5 (1.0-4.8) k/uL Monocytes # 0.5 (0-1.0) k/uL Eosinophils # 0.2 (0-0.7) k/uL Basophils # 0.1 (0-0.2) k/uL Sodium 139 (137-145) mmol/L Potassium 3.5 (3.5-5.1) mmol/L Chloride 109 H (98-107) mmol/L Carbon Dioxide 21 L (22-30) mmol/L Anion Gap 9 mmol/L BUN 5 L (7-17) mg/dL Creatinine 0.49 L (0.52-1.04) mg/dL Est GFR (CKD-EPI)AfAm >90 (>60 ml/min/1.73 sqM) Est GFR (CKD-EPI)NonAf >90 (>60 ml/min/1.73 sqM) Glucose 88 (74-99) mg/dL Calcium 9.2 (8.4-10.2) mg/dL Total Bilirubin 0.4 (0.2-1.3) mg/dL AST 17 (14-36) U/L ALT 9 (9-52) U/L Alkaline Phosphatase 70 (38-126) U/L Troponin I (0.000-0.034) ng/mL Total Protein 6.8 (6.3-8.2) g/dL Albumin 3.9 (3.5-5.0) g/dL Urine Color Urine Appearance (Clear) Urine pH (5.0-8.0) Ur Specific [place] (1.001-1.035) Urine Protein (Negative) Urine Glucose (UA) (Negative) Urine Ketones (Negative) Urine Blood (Negative) Urine Nitrite (Negative) Urine Bilirubin (Negative) Urine Urobilinogen (<2.0) mg/dL Ur Leukocyte Esterase (Negative) Urine RBC (0-5) /hpf Urine WBC (0-5) /hpf Ur Squamous Epith Cells (0-4) /hpf Urine Bacteria (None) /hpf Urine Mucus (None) /hpf Urine HCG, Qual Detected (Not Detectd) 07/10/19 07/10/19 Range/Units 20:25 20:25 WBC (3.8-10.6) k/uL RBC (3.80-5.40) m/uL Hgb (11.4-16.0) gm/dL Hct (34.0-46.0) % MCV (80.0-100.0) fL MCH (25.0-35.0) pg MCHC (31.0-37.0) g/dL RDW (11.5-15.5) % Plt Count (150-450) k/uL Neutrophils % % Lymphocytes % % Monocytes % % Eosinophils % % Basophils % % Neutrophils # (1.3-7.7) k/uL Lymphocytes # (1.0-4.8) k/uL Monocytes # (0-1.0) k/uL Eosinophils # (0-0.7) k/uL Basophils # (0-0.2) k/uL Sodium (137-145) mmol/L Potassium (3.5-5.1) mmol/L Chloride (98-107) mmol/L Carbon Dioxide (22-30) mmol/L Anion Gap mmol/L BUN (7-17) mg/dL Creatinine (0.52-1.04) mg/dL Est GFR (CKD-EPI)AfAm (>60 ml/min/1.73 sqM) Est GFR (CKD-EPI)NonAf (>60 ml/min/1.73 sqM) Glucose (74-99) mg/dL Calcium (8.4-10.2) mg/dL Total Bilirubin (0.2-1.3) mg/dL AST (14-36) U/L ALT (9-52) U/L Alkaline Phosphatase (38-126) U/L Troponin I <0.012 (0.000-0.034) ng/mL Total Protein (6.3-8.2) g/dL Albumin (3.5-5.0) g/dL Urine Color Yellow Urine Appearance Clear (Clear) Urine pH 8.0 (5.0-8.0) Ur Specific [place] 1.022 (1.001-1.035) Urine Protein 1+ H (Negative) Urine Glucose (UA) Negative (Negative) Urine Ketones Trace H (Negative) Urine Blood Negative (Negative) Urine Nitrite Negative (Negative) Urine Bilirubin Negative (Negative) Urine Urobilinogen <2.0 (<2.0) mg/dL Ur Leukocyte Esterase Small H (Negative) Urine RBC 1 (0-5) /hpf Urine WBC 2 (0-5) /hpf Ur Squamous Epith Cells 5 H (0-4) /hpf Urine Bacteria Occasional H (None) /hpf Urine Mucus Moderate H (None) /hpf Urine HCG, Qual (Not Detectd) Disposition Clinical Impression: Bronchitis Disposition: HOME SELF-CARE Condition: Stable Instructions (If sedation given, give patient instructions): Acute Bronchitis (ED) Additional Instructions: Patient to adhere to previously discussed treatment plan and will take medication(s) as directed. Patient to follow up with PCP in 1-2 days. Patient to return to ED if symptoms do not improve. Follow-up with primary care provider and asic engineer return to ER if condition worsens. Use albuterol inhaler as needed. Prescriptions: Cephalexin [Keflex] 500 mg PO Q12HR 7 Days cap Pnv No.95/Ferrous Fum/Folic AC [ Multivitamin Tablet] 1 each PO Q24HR 30 Days #30 tablet Albuterol Inhaler [Ventolin Hfa Inhaler] 1 - 2 puff INHALATION Q4-6H PRN #1 inhaler PRN Reason: Cough Is patient prescribed a controlled substance at d/c from ED?: No Referrals: None,Stated [Primary Care Provider] - 1-2 days Alberto Shelby MD [STAFF PHYSICIAN] - 1-2 days
[2019-07-10 22:15] VITALS: BP 112/55; PULSE 81; RESP 20; TEMP 98
== END 2019-07-10 22:22 | disposition home or self-care (01) ==
LOC: EC 19:39
DX: J40 Bronchitis, not specified as acute or chronic (principal); F17.200 Nicotine dependence, unspecified, uncomplicated; Z32.02 Encounter for pregnancy test, result negative
CPT/HCPCS: 36415; 71046; 80053; 81001; 81025; 84484; 84702; 85025; 93005; 94640; 99285

== ENCOUNTER 2019-09-18 16:00 | Outpatient (CLI) | payer OTHER ==
[2019-09-18 17:31] LABS: Appearance,Urine Clear (Clear); Bilirubin,Urine Negative (Negative); Blood,Urine Negative (Negative); Color,Urine Yellow; Glucose,Urine (UA) Negative (Negative); Ketones,Urine Negative (Negative); Leukocyte Esterase,Urine Negative (Negative); Nitrite,Urine Negative (Negative); Protein,Urine Trace (Negative); Specific Gravity,Urine 1.023 (1.001-1.035); Urobilinogen,Urine <2.0 mg/dL (<2.0)
[2019-09-18 17:58] VITALS: BP 121/64; PULSE 87; RESP 16; TEMP 98.8
--- NOTE | 2019-09-18 18:02 | P.MSEPDOC ---
Presenting Problems - Arrival Data Date of Arrival on Unit: 09/18/19 Time of Arrival on Unit: 16:00 Mode of Transport: Ambulatory - Complaint OB-Reason for Admission/Chief Complaint: Other Comment: pelvic pressure Medical History - Information : 4 Para: 2 Term: 2 : 0 Abortions: Spontaneous or Elective: 1 Number of Living Children: 2 - Gestational Age Gestational Age by BRANDT (wks/days): 27 Weeks and 4 Days - History Complications: No Care Review of Systems - Review of Systems Constitutional: No problems Breast: No problems ENT: No problems Cardiovascular: No problems Respiratory: No problems Gastrointestinal: No problems Genitourinary: No problems Musculoskeletal: No problems Neurological: No problems Skin: No problems Vital Signs - Temperature Temperature: 98.8 F Temperature Source: Oral - Pulse Sitting Pulse Rate: 87 Pulse Assessment Method: Automatic Cuff - Respirations Respiratory Rate: 16 Oxygen Delivery Method: Room Air - Blood Pressure Sitting Blood Pressure: 121/64 Blood Pressure Mean: 83 Blood Pressure Source: Automatic Cuff Medical Screen Scoring (Pre) - Cervical Exam Dilation: 0 cm = 0 Membranes: Intact - Uterine Contractions Frequency: N/A Duration: N/A Intensity: N/A - Maternal Vital Signs Maternal Temperature: N/A Signs of Preeclampsia: N/A Maternal Respirations: N/A - Maternal Trauma Maternal Trauma: N/A - Assessment - Baby A Baseline FHR: 140 Heart Rate - NICHD Category: Category I (Normal) = 0 Position: N/A - Total Score - Baby A Total Score - Baby A: 0 - Total Score - Baby B Total Score - Baby B: 0 - Total Score - Baby C Total Score - Baby C: 0 - Level of Risk - Baby A Level of Risk - Baby A: Low (0-5) - Level of Risk - Baby B Level of Risk - Baby B: Low (0-5) - Level of Risk - Baby C Level of Risk - Baby C: Low (0-5) Physician Notification (Pre) - Physician Notified Physician Notified Date: 09/18/19 Physician Notified Time: 17:57 Disposition - Disposition OB Disposition: Discharge to home, Written follow up instructions reviewed Discharge Date: 09/18/19 Discharge Time: 17:58 I agree with the RN Medical Screening Exam: Yes Risk & Benefit of care provided described in d/c instruction: Yes Diagnosis: FALSE LABOR AT OR AFTER 37 COMPLETED WEEKS OF GESTATION (Patient is admitted to triage with complaints of chronic lower abdominal discomfort. Patient has an appointment for care with Dr. Ba in approximately 1 week but although having an ultrasound ordered by her has not actually been seen by Dr. Ba. Cervix is non-worrisome. Patient is having no contractions. She is already had an ultrasound done previously. fibronectin is negative. At this point there is no evidence of maternal compromise and therefore she'll be discharged home follow up with Dr. Ba is scheduled. Patient is given strict instructions return if she has any concerns or increasing symptomatology.)
[2019-09-19 14:13] LABS: Urine Alcohol Negative (Negative); Urine Barbiturate Negative (Negative); Urine Cocaine Negative (Negative); Urine Methadone Negative (Negative); Urine Opiates Negative (Negative); Urine Phencyclidine Negative (Negative)
== END 2019-09-18 18:30 | disposition home or self-care (01) ==
LOC: FBPOP 16:00
PROVIDERS: ATTEND Obstetrics & Gynecology
DX: O47.1 False labor at or after 37 completed weeks of gestation (principal); Z3A.27 27 weeks gestation of pregnancy
CPT/HCPCS: 82731; 81003; 80306; G0463; 99213

== ENCOUNTER 2019-11-01 12:53 | Observation (INO) | payer OTHER ==
[2019-11-01 13:49] LABS: Amorphous Sediment,Urine Rare /hpf; Appearance,Urine Clear (Clear); Bacteria,Urine Rare /hpf; Bilirubin,Urine Negative (Negative); Blood,Urine Negative (Negative); Color,Urine Yellow; Glucose,Urine (UA) Negative (Negative); Ketones,Urine Negative (Negative); Leukocyte Esterase,Urine Small (Negative); Mucus,Urine Rare /hpf; Nitrite,Urine Negative (Negative); PH, Urine 6.5 (5.0-8.0); Protein,Urine Negative (Negative); RBC,Urine 1 /hpf (0-5); Specific Gravity,Urine 1.015 (1.001-1.035); Squamous Epithelial Cell,Urine 3 /hpf (0-4); Urobilinogen,Urine <2.0 mg/dL (<2.0); WBC,Urine 3 /hpf (0-5)
[2019-11-01] MEDS: BETAMET ACET-BETAMETH SOD PHOS 6 MG/ML VIAL IM SCH (14:53)
--- NOTE | 2019-11-01 15:05 | P.HPOB ---
History of Present Illness H&P Date: 11/01/19 Chief Complaint: Intrauterine Brixey 33 weeks: Cervical dilation Madonna is a 24-year-old at 33 weeks gestation who has had no care. She is scheduled to see Dr. Ba on Saturday, but has thus far not seen anyone for the . This morning she relates that she began having suprapubic pain and some back pain which ultimately brought her into labor and delivery. She also complains of vague lightheadedness/dizziness there is also been present today. Prior to today she was feeling well and not having any significant complaints. She denies fever/chills/nausea/vomiting no signs or symptoms of influenza at this time. We will check labs and CBC and monitor closely. Past medical history is otherwise unremarkable. Past surgical history lipoma removal of her abdomen. Social history significant for tobacco abuse one to 2 cigarettes per week she denies alcohol or illicit drug use. Family history is noncontributory per her. Medications vitamins. On physical exam vital signs are stable and she is afebrile. Heart regular, lungs clear, extremities without pain. Abdomen soft uterus is soft there are no contractions on the monitor and category 1 tracing is noted. She does have pain suprapubically but that's where the baby's head is an on pushing on that. Does seem that the head may be causing some of the pain she is having. Assessment intrauterine Brixey 32-33 weeks with abdominal pain plan observation and steroids 2 for cervical dilatation. An FFM was done but was negative reduce the risk for labor however with her already dilated we'll take no more unless her chance that this time. Past Medical History Past Medical History: Eye Disorder Additional Past Medical History / Comment(s): hypoglycemia. DIPLOPIA History of Any Multi-Drug Resistant Organisms: None Reported Past Surgical History: No Surgical Hx Reported Additional Past Surgical History / Comment(s): cyst removed. RT EYE SX FOR DIPLOPIA 09/2017, 04/2018 Past Anesthesia/Blood Transfusion Reactions: No Reported Reaction Smoking Status: Current some day smoker - Past Family History Father Additional Family Medical History / Comment(s): pacemaker, glaucoma, scoliosis Mother Family Medical History: Cancer Additional Family Medical History / Comment(s): MS, breast ca Medications and Allergies Home Medications Medication Instructions Recorded Confirmed Type Pnv No.95/Ferrous Fum/Folic AC 1 each PO Q24HR 30 Days #30 tablet 07/10/19 11/01/19 Rx [ Multivitamin Tablet] Allergies Allergy/AdvReac Type Severity Reaction Status Date / Time No Known Allergies Allergy Verified 11/01/19 13:15 Exam Osteopathic Statement: *. No significant issues noted on an osteopathic structural exam other than those noted in the History and Physical/Consult. Vital Signs Temp Pulse Resp BP Pulse Ox 11/01/19 14:21 97.9 F 79 17 135/63 100 11/01/19 13:10 97.9 F 79 17 135/63 100 Intake and Output 11/01/19 11/01/19 11/01/19 06:59 14:59 22:59 Other: Weight 171 kg Results Abnormal Lab Results - Last 24 Hours (Table) 11/01/19 Range/Units 13:27 Ur Leukocyte Esterase Small H (Negative) Amorphous Sediment Rare H (None) /hpf Urine Bacteria Rare H (None) /hpf Urine Mucus Rare H (None) /hpf
[2019-11-01 15:06] VITALS: RESP 16
[2019-11-01 15:11] LABS: Glucose,Whole Blood 76 mg/dL (75-99)
[2019-11-01 16:01] LABS: Amphetamine Screen,Urine Not Detected (NotDetected); Barbiturate Screen,Urine Not Detected (NotDetected); Benzodiazepines Screen,Urine Not Detected (NotDetected); Cocaine Screen,Urine Not Detected (NotDetected); Methadone Screen, Urine Not Detected (NotDetected); Opiate Screen,Urine Not Detected (NotDetected); Oxycodone Screen, Urine Not Detected (NotDetected); Phencyclidine Screen,Urine Not Detected (NotDetected); Tricyclic Antidepressant,Urine Not Detected (NotDetected); Urn Cannabinoid Scrn Detected (NotDetected)
[2019-11-01 17:14] LABS: Basophils % (A) 0 %; Eosinophils # (A) 0.1 k/uL (0-0.7); Eosinophils % (A) 1 %; HCT 38.5 % (34.0-46.0); HGB 12.6 gm/dL (11.4-16.0); Lymphocytes # (A) 1.2 k/uL (1.0-4.8); Lymphocytes % (A) 8 %; MCH 29.4 pg (25.0-35.0); MCHC 32.7 g/dL (31.0-37.0); MCV 90.1 fL (80.0-100.0); Mean Platelet Volume 7.2; Monocytes # (A) 0.4 k/uL (0-1.0); Monocytes % (A) 3 %; Neutrophils % (A) 88 %; Platelet Count 357 k/uL (150-450); RBC 4.27 m/uL (3.80-5.40); RDW 13.1 % (11.5-15.5); WBC 15.9 k/uL (3.8-10.6)
[2019-11-01 17:26] LABS: ALT 13 U/L (4-34); AST 23 U/L (14-36); African American GFR (CKD) >90 (>60 ml/min/1.73 sqM); Albumin 3.4 g/dL (3.5-5.0); Alkaline Phosphatase 141 U/L (38-126); Anion Gap 8 mmol/L; Blood Urea Nitrogen 5 mg/dL (7-17); Calcium 9.1 mg/dL (8.4-10.2); Carbon Dioxide 21 mmol/L (22-30); Chloride 108 mmol/L (98-107); Glucose 99 mg/dL (74-99); Non-African American GFR(CKD) >90 (>60 ml/min/1.73 sqM); Potassium 3.9 mmol/L (3.5-5.1); Sodium 137 mmol/L (137-145); Total Bilirubin 0.4 mg/dL (0.2-1.3); Total Protein 6.3 g/dL (6.3-8.2)
[2019-11-01 20:53] VITALS: BP 123/62; PULSE 82; TEMP 97.9
[2019-11-02] MEDS ORDERED: MECLIZINE 25 MG TAB PO STA (07:49)
[2019-11-02 11:59] LABS: Hepatitis B Surface Antigen Non-Reactive (Non-Reactive)
[2019-11-02 13:43] LABS: HIV 1 AB Non-Reactive (Non-Reactive); HIV 2 AB Non-Reactive (Non-Reactive); HIV AB P24 Non-Reactive (Non-Reactive); HIV P24 AG Non-Reactive (Non-Reactive)
[2019-11-02] MEDS: BETAMET ACET-BETAMETH SOD PHOS 6 MG/ML VIAL IM SCH (14:19)
--- NOTE | 2019-11-06 07:24 | P.DS ---
Providers Date of admission: 11/01/19 14:26 Expected date of discharge: 11/02/19 Attending physician: Heike Ba Primary care physician: Stated None - Discharge Diagnosis(es) (1) Premature cervical dilation Status: Acute (2) Dizziness Status: Acute Hospital Course: Patient presented complaining of some suprapubic and back pain as well as some dizziness. She was found to be dilated to 2 cm despite only being 33 weeks gestation but there were no contractions seen on the monitor. She was given 2 doses of Celestone. Antivert helps minimally with her dizziness. She was discharged home after the 2 doses of Celestone. She'll be following up with me the end of the week. Plan - Discharge Summary New Discharge Prescriptions: No Action Pnv No.95/Ferrous Fum/Folic AC [ Multivitamin Tablet] 1 each PO Q24HR 30 Days #30 tablet Discharge Medication List Pnv No.95/Ferrous Fum/Folic AC [ Multivitamin Tablet] 1 each PO Q24HR 30 Days #30 tablet 07/10/19 [Rx] Activity/Diet/Wound Care/Special Instructions: Follow up Saturday11/05/[address] Ba Discharge Disposition: HOME SELF-CARE
== END 2019-11-02 14:45 | disposition home or self-care (01) ==
LOC: FBPOP 12:53 → 4FBP 14:26
PROVIDERS: ADMIT Obstetrics & Gynecology; ATTEND Obstetrics & Gynecology
DX: O34.33 Maternal care for cervical incompetence, third trimester (principal); O26.893 Other specified pregnancy related conditions, third trimester; R42 Dizziness and giddiness; O09.33 Supervision of pregnancy with insufficient antenatal care, third trimester; Z3A.33 33 weeks gestation of pregnancy; O99.333 Smoking (tobacco) complicating pregnancy, third trimester; F17.210 Nicotine dependence, cigarettes, uncomplicated; Z98.890 Other specified postprocedural states; Z87.2 Personal history of diseases of the skin and subcutaneous tissue; Z86.69 Personal history of other diseases of the nervous system and sense organs; Z82.49 Family history of ischemic heart disease and other diseases of the circulatory system; Z83.511 Family history of glaucoma; Z82.69 Family history of other diseases of the musculoskeletal system and connective tissue; Z80.3 Family history of malignant neoplasm of breast; Z82.0 Family history of epilepsy and other diseases of the nervous system
CPT/HCPCS: 59025; 96372 ×2; 86900; 86901; 82731; 86762; 80053; 84443; 85025; 86850; 87340; 81001; 86780; 80306; 87390; G0463; G0378; J0702 ×2; 99213

== ENCOUNTER 2019-12-01 16:43 | Outpatient (CLI) | payer OTHER ==
[2019-12-01 19:41] VITALS: BP 138/68; PULSE 82; RESP 18; TEMP 97.6
--- NOTE | 2019-12-01 21:23 | P.MSEPDOC ---
Presenting Problems - Arrival Data Date of Arrival on Unit: 12/01/19 Time of Arrival on Unit: 16:34 Mode of Transport: Ambulatory - Complaint OB-Reason for Admission/Chief Complaint: Possible Onset of Labor Comment: pt presents to triage for pssible labor Medical History - Information : 2 Para: 1 Term: 1 : 0 Abortions: Spontaneous or Elective: 0 Number of Living Children: 1 - Gestational Age Gestational Age by BRANDT (wks/days): 38 Weeks and 1 Days - History Complications: GBS+ Review of Systems - Review of Systems Constitutional: No problems Breast: No problems ENT: No problems Cardiovascular: No problems Respiratory: No problems Gastrointestinal: No problems Genitourinary: No problems Musculoskeletal: No problems Neurological: No problems Skin: No problems Vital Signs - Temperature Temperature: 97.6 F Temperature Source: Temporal Artery Scan - Pulse Right Brachial Pulse Rate: 82 Pulse Assessment Method: Automatic Cuff - Respirations Respiratory Rate: 18 Oxygen Delivery Method: Room Air - Blood Pressure Right Arm Blood Pressure: 138/68 Blood Pressure Mean: 91 Blood Pressure Source: Automatic Cuff Medical Screen Scoring (Pre) - Cervical Exam Dilation: 1-3 cm = 1 Effacement: More than 50% = 2 Membranes: Intact - Uterine Contractions Frequency: > 5 minutes apart = 1 Duration: N/A Intensity: N/A - Maternal Vital Signs Maternal Temperature: N/A Maternal Blood Pressure: N/A Signs of Preeclampsia: N/A Maternal Respirations: N/A - Maternal Trauma Maternal Trauma: N/A - Assessment - Baby A Baseline FHR: 130 Heart Rate - NICHD Category: Category I (Normal) = 0 NST: Reactive Position: N/A Station: N/A - Total Score - Baby A Total Score - Baby A: 4 - Total Score - Baby B Total Score - Baby B: 4 - Total Score - Baby C Total Score - Baby C: 4 - Level of Risk - Baby A Level of Risk - Baby A: Low (0-5) - Level of Risk - Baby B Level of Risk - Baby B: Low (0-5) - Level of Risk - Baby C Level of Risk - Baby C: Low (0-5) Physician Notification (Pre) - Physician Notified Physician Notified Date: 12/01/19 Physician Notified Time: 19:05 - Notification Comment Comment: pts cervical exam rechecked, no change, orders to discharge pt home, follow up in office at scheduled appt Disposition - Disposition OB Disposition: Triage, Discharge to home Discharge Date: 12/01/19 Discharge Time: 19:20 I agree with the RN Medical Screening Exam: Yes Risk & Benefit of care provided described in d/c instruction: Yes Diagnosis: FALSE LABOR AT OR AFTER 37 COMPLETED WEEKS OF GESTATION
== END 2019-12-01 19:20 | disposition home or self-care (01) ==
LOC: FBPOP 16:43
PROVIDERS: ATTEND Obstetrics & Gynecology
DX: O47.1 False labor at or after 37 completed weeks of gestation (principal); Z3A.38 38 weeks gestation of pregnancy
CPT/HCPCS: 59025; G0463; 99213

== ENCOUNTER 2019-12-08 06:20 | Inpatient (IN) | payer OTHER ==
[2019-12-08] MEDS ORDERED: OXYTOCIN 10 UNIT/ML 1 ML VIAL IM PRN (06:29)
[2019-12-08] MEDS ORDERED: TERBUTALINE 1 MG/ML VIAL SQ PRN (06:29)
[2019-12-08] MEDS ORDERED: CARBOPROST TROMETHAMINE 250 MCG/ML 1 ML AMP IM PRN (06:29)
[2019-12-08] MEDS ORDERED: METHYLERGONOVINE 0.2 MG/ML 1 ML AMP IM PRN (06:29)
[2019-12-08] MEDS ORDERED: LIDOCAINE 0.5% (PF) 5 MG/ML (50 ML SDV) SQ PRN (06:29)
[2019-12-08] MEDS ORDERED: OXYTOCIN 30 UNITS/500 ML NS 30 UNIT in SALINE 1 500ML.BAG IV SCH (06:30)
[2019-12-08 06:34] VITALS: RESP 16
[2019-12-08] MEDS: LACTATED RINGERS 1,000 ML IV SCH ×3 (06:40→11:23)
[2019-12-08 06:57] LABS: Basophils # (A) 0.1 k/uL (0-0.2); Basophils % (A) 1 %; Eosinophils # (A) 0.2 k/uL (0-0.7); Eosinophils % (A) 2 %; HCT 40.3 % (34.0-46.0); HGB 13.1 gm/dL (11.4-16.0); Lymphocytes # (A) 2.6 k/uL (1.0-4.8); Lymphocytes % (A) 20 %; MCHC 32.4 g/dL (31.0-37.0); MCV 89.5 fL (80.0-100.0); Mean Platelet Volume 7.4; Monocytes # (A) 0.7 k/uL (0-1.0); Monocytes % (A) 6 %; Neutrophils # (A) 9.2 k/uL (1.3-7.7); Neutrophils % (A) 70 %; Platelet Count 377 k/uL (150-450); RBC 4.51 m/uL (3.80-5.40); RDW 13.6 % (11.5-15.5); WBC 13.2 k/uL (3.8-10.6)
[2019-12-08] MEDS ORDERED: fentaNYL (PF) 50 MCG/ML 5 ML AMP ONE (09:44)
[2019-12-08] MEDS ORDERED: SODIUM CHLORIDE 0.9% 100 ML BAG ONE (09:44)
[2019-12-08] MEDS ORDERED: ROPIVACAINE 5MG/ML 20ML VIAL ONE (09:44)
--- NOTE | 2019-12-08 12:14 | P.HPOB ---
History of Present Illness H&P Date: 12/08/19 Chief Complaint: Induction of labor 24-year-old presents at 39 and 1 for induction of labor. Her cervix is 4 cm dilated, 80% effaced, and -2 station. She is elda irregularly. heart tones 140 with moderate variability and reactive. Review of Systems All systems: negative Constitutional: Denies chills, Denies fever Eyes: denies blurred vision, denies pain Ears, nose, mouth and throat: Denies headache, Denies sore throat Cardiovascular: Denies chest pain, Denies shortness of breath Respiratory: Denies cough Gastrointestinal: Denies abdominal pain, Denies diarrhea, Denies nausea, Denies vomiting Genitourinary: Denies dysuria, Denies hematuria Musculoskeletal: Denies myalgias Integumentary: Denies pruritus, Denies rash Neurological: Denies numbness, Denies weakness Psychiatric: Denies anxiety, Denies depression Endocrine: Denies fatigue, Denies weight change Past Medical History Past Medical History: Eye Disorder Additional Past Medical History / Comment(s): hypoglycemia. DIPLOPIA. Obstetric history: She has had 2 previous vaginal deliveries and a spontaneous . This is her fourth . She's planning to give this baby up for adoption. She did not seek care until about 35 weeks. She had been in my office earlier in the around 26 weeks and had an ultrasound but did not follow-up with me until 35 weeks. Blood type is O+, and eyes negative, rubella immune, hepatitis B-, GBS negative, RPR nonreactive. History of Any Multi-Drug Resistant Organisms: None Reported Past Surgical History: No Surgical Hx Reported Additional Past Surgical History / Comment(s): cyst removed. RT EYE SX FOR DIPLOPIA 09/2017, 04/2018 Past Anesthesia/Blood Transfusion Reactions: No Reported Reaction Past Psychological History: Anxiety Additional Psychological History / Comment(s): zoloft at beginning of - not currently medicated Smoking Status: Current every day smoker Past Alcohol Use History: Occasional Additional Past Alcohol Use History / Comment(s): pt states she smokes 3-4 cigs a day Past Drug Use History: Marijuana Additional Drug Use History / Comment(s): marijuana last used 6-8 weeks ago as stated per pt. - Past Family History Father Additional Family Medical History / Comment(s): pacemaker, glaucoma, scoliosis Mother Family Medical History: Cancer Additional Family Medical History / Comment(s): MS, breast ca Medications and Allergies Home Medications Medication Instructions Recorded Confirmed Type No Known Home Medications 12/08/19 12/08/19 History Allergies Allergy/AdvReac Type Severity Reaction Status Date / Time No Known Allergies Allergy Verified 12/08/19 06:29 Exam Osteopathic Statement: *. No significant issues noted on an osteopathic structural exam other than those noted in the History and Physical/Consult. Vital Signs Temp Pulse Resp BP Pulse Ox 12/08/19 06:30 97.1 F L 81 16 125/73 98 Intake and Output 12/07/19 12/08/19 12/08/19 22:59 06:59 14:59 Other: Weight 80.739 kg Heart: Regular rate and rhythm Lungs: Clear to auscultation bilaterally Abdomen: Soft, nontender Extremities: Negative Homans sign Results Result Diagrams: 12/08/19 06:40 Abnormal Lab Results - Last 24 Hours (Table) 12/08/19 Range/Units 06:40 WBC 13.2 H (3.8-10.6) k/uL Neutrophils # 9.2 H (1.3-7.7) k/uL Assessment and Plan (1) Normal labor Current Visit: Yes Status: Acute Code(s): O80 - ENCOUNTER FOR FULL-TERM UNCOMPLICATED DELIVERY; Z37.9 - OUTCOME OF DELIVERY, UNSPECIFIED SNOMED Code(s): 92708477 Plan: 1. Induction of labor with amniotomy and Pitocin 2. Anticipate normal vaginal delivery
[2019-12-08] MEDS ORDERED: IBUPROFEN 600 MG TAB PO PRN (12:16)
[2019-12-08] MEDS ORDERED: LANOLIN CREAM 5 GM TUBE TOPICAL PRN (12:16)
[2019-12-08] MEDS ORDERED: HYDROCORTISONE 2.5% RECTAL CREAM 30 GM TUBE RECTAL PRN (12:16)
[2019-12-08] MEDS ORDERED: diphenhydrAMINE 50 MG CAP PO PRN (12:16)
[2019-12-08] MEDS ORDERED: SIMETHICONE 80 MG CHEWABLE PO PRN (12:16)
[2019-12-08] MEDS ORDERED: diphenhydrAMINE 25 MG CAP PO PRN (12:16)
[2019-12-08] MEDS ORDERED: WITCH HAZEL 1 EACH MED..PAD TOPICAL PRN (12:16)
[2019-12-08] MEDS ORDERED: ZOLPIDEM 5 MG TAB PO PRN (12:16)
[2019-12-08] MEDS ORDERED: diphenhydrAMINE 50 MG/ML 1 ML VIAL IVP PRN ×2 (12:16)
[2019-12-08] MEDS ORDERED: BENZOCAINE/MENTHOL SPRAY 1 GM/SPRAY AEROSOL TOPICAL PRN (12:16)
--- NOTE | 2019-12-08 12:16 | P.PROBDLV ---
Vaginal Delivery Note - . Vaginal Delivery Note: 24-year-old presents at 39 and 1 for induction of labor. Her cervix is 4 cm dilated, 80% effaced, and -2 station. She is elda irregularly. heart tones 140 with moderate variability and reactive. Pitocin was started. Amniotomy performed at 7:52 AM and clear fluid noted. When she was 5-6 cm dilated she did get an epidural. Her cervix was completely dilated at 11:53 AM. She pushed once, delivered a viable female infant over intact perineum under epidural anesthesia at 12:02 PM. Head delivered OA, anterior shoulder delivered gentle downward guidance. A posterior shoulder and rest of body. Nose and mouth bulb suctioned, cord clamped and cut, handed to the adoptive mother. Apgars 9, 9, weight 7 pounds. Placenta delivered spontaneous, intact with three-vessel cord at 1205. Vagina, cervix, and perineum were inspected. No lacerations noted. Estimated blood loss 100 mL. Mother and baby in stable condition.
[2019-12-08] MEDS ORDERED: OXYTOCIN 20 UNITS/1000 ML NS 1,000 ML IV SCH (12:30)
[2019-12-08] MEDS: SENNOSIDES-DOCUSATE SODIUM 1 EACH TAB PO SCH (20:25)
[2019-12-09] MEDS: ACETAMINOPHEN TAB 325 MG TAB PO PRN ×2 (04:18→13:06)
[2019-12-09 07:02] LABS: Basophils # (A) 0.1 k/uL (0-0.2); Basophils % (A) 1 %; Eosinophils # (A) 0.3 k/uL (0-0.7); Eosinophils % (A) 2 %; HCT 37.1 % (34.0-46.0); HGB 12.1 gm/dL (11.4-16.0); Lymphocytes # (A) 2.6 k/uL (1.0-4.8); Lymphocytes % (A) 19 %; MCH 29.6 pg (25.0-35.0); MCHC 32.5 g/dL (31.0-37.0); Mean Platelet Volume 7.8; Monocytes # (A) 0.8 k/uL (0-1.0); Monocytes % (A) 6 %; Neutrophils # (A) 9.5 k/uL (1.3-7.7); Neutrophils % (A) 70 %; Platelet Count 308 k/uL (150-450); RBC 4.08 m/uL (3.80-5.40); RDW 13.8 % (11.5-15.5); WBC 13.5 k/uL (3.8-10.6)
[2019-12-09] MEDS: SENNOSIDES-DOCUSATE SODIUM 1 EACH TAB PO SCH (07:50)
[2019-12-09 08:55] VITALS: BP 128/73; PULSE 64; TEMP 97.8
--- NOTE | 2019-12-09 12:53 | P.DS ---
Providers Date of admission: 12/08/19 06:20 Expected date of discharge: 12/09/19 Attending physician: Heike Ba Primary care physician: Stated None - Discharge Diagnosis(es) (1) Normal labor Current Visit: Yes Status: Resolved (2) Normal vaginal delivery Current Visit: Yes Status: Acute Hospital Course: Pt presented for induction of labor. She underwent a normal vaginal delivery and had an uncomplicated pp course. She is giving this baby up for adoption. She is feeling some sadness but knows it is the right decision for her. I did provide numbers for counselors and I will see her earlier than the normal pp visit-2 weeks instead of 6- to check on her mental health. Plan - Discharge Summary New Discharge Prescriptions: New Ibuprofen [Motrin] 600 mg PO Q6HR PRN #40 tab PRN Reason: Mild Pain Or Fever >= 100.5 Discharge Medication List Ibuprofen [Motrin] 600 mg PO Q6HR PRN #40 tab 12/09/19 [Rx] Follow up Appointment(s)/Referral(s): Heike Ba DO [Doctor of Osteopathic Medicine] - 2 Weeks Discharge Disposition: HOME SELF-CARE
== END 2019-12-09 16:30 | disposition home or self-care (01) | DRG 807 ==
LOC: 4FBP 06:20
PROVIDERS: ADMIT Obstetrics & Gynecology; ATTEND Obstetrics & Gynecology
PROC: 10E0XZZ Delivery of Products of Conception, External Approach (ICD-10-PCS; principal; 2019-12-08)
PROC: 3E0R3NZ Introduction of Analgesics, Hypnotics, Sedatives into Spinal Canal, Percutaneous Approach (ICD-10-PCS; principal; 2019-12-08)
PROC: 3E033VJ Introduction of Other Hormone into Peripheral Vein, Percutaneous Approach (ICD-10-PCS; principal; 2019-12-08)
PROC: 00HU33Z Insertion of Infusion Device into Spinal Canal, Percutaneous Approach (ICD-10-PCS; principal; 2019-12-08)
PROC: 10907ZC Drainage of Amniotic Fluid, Therapeutic from Products of Conception, Via Natural or Artificial Opening (ICD-10-PCS; principal; 2019-12-08)
DX: O99.334 Smoking (tobacco) complicating childbirth (principal); Z37.0 Single live birth; F17.210 Nicotine dependence, cigarettes, uncomplicated; Z3A.39 39 weeks gestation of pregnancy; Z80.3 Family history of malignant neoplasm of breast
CPT/HCPCS: 85025; 86850; 86900; 86901

== ENCOUNTER 2021-10-05 07:30 | Day surgery (SDC) | payer OTHER ==
[2021-09-12 11:41] VITALS: BMI 23.8
--- NOTE | 2021-10-05 05:46 | P.HPOB ---
History of Present Illness H&P Date: 10/05/21 Chief Complaint: family planning, vulvar cyst 26 year old presents for laparoscopic tubal ligation and aspiration of a vulvar cyst. Review of Systems All systems: negative Constitutional: Denies chills, Denies fever Eyes: denies blurred vision, denies pain Ears, nose, mouth and throat: Denies headache, Denies sore throat Cardiovascular: Denies chest pain, Denies shortness of breath Respiratory: Denies cough Gastrointestinal: Denies abdominal pain, Denies diarrhea, Denies nausea, Denies vomiting Genitourinary: Denies dysuria, Denies hematuria Musculoskeletal: Denies myalgias Integumentary: Denies pruritus, Denies rash Neurological: Denies numbness, Denies weakness Psychiatric: Denies anxiety, Denies depression Endocrine: Denies fatigue, Denies weight change Past Medical History Past Medical History: Eye Disorder Additional Past Medical History / Comment(s): Hypoglycemia. DIPLOPIA(Double Vision). History of Any Multi-Drug Resistant Organisms: None Reported Past Surgical History: No Surgical Hx Reported Additional Past Surgical History / Comment(s): Lipoma removed from stomach. RIGHT EYE SURGERY FOR DIPLOPIA 09/2017, 04/2018, 08/2021. Past Anesthesia/Blood Transfusion Reactions: No Reported Reaction Past Psychological History: Anxiety Smoking Status: Former smoker Past Alcohol Use History: None Reported Additional Past Alcohol Use History / Comment(s): Smoked 3-4 cigarettes per day X6 yrs, quit 02/22. Past Drug Use History: Marijuana Additional Drug Use History / Comment(s): Marijuana use hs, aware no use 24 hrs prior to procedure. - Past Family History Father Family Medical History: Eye Disorder, Musculoskeletal Disorder Additional Family Medical History / Comment(s): Pacemaker, glaucoma, scoliosis. Mother Family Medical History: Cancer Additional Family Medical History / Comment(s): MS, breast cancer. Medications and Allergies Home Medications Medication Instructions Recorded Confirmed Type Multivitamins, Thera [Multivitamin 1 tab PO DAILY 09/12/21 10/02/21 History (formulary)] Allergies Allergy/AdvReac Type Severity Reaction Status Date / Time No Known Allergies Allergy Verified 10/02/21 11:47 Exam Osteopathic Statement: *. No significant issues noted on an osteopathic structural exam other than those noted in the History and Physical/Consult. HEart: RRR Lungs: CTAB Abdomen: soft, nontender extremeties: neg brittany's Assessment and Plan (1) Family planning Status: Acute Code(s): Z30.09 - ENCOUNTER FOR OTH GENERAL CNSL AND ADVICE ON CONTRACEPTION SNOMED Code(s): 026280337 (2) Vulvar cyst Status: Acute Code(s): N90.7 - VULVAR CYST SNOMED Code(s): 33763481 Plan: laparoscopic tubal ligation and aspiration of vulvar cyst
[~2021-10-05 07:30] MED LIST changes: -DEXAMETHASONE SOD PHOSPHATE 10 MG/ML 1 ML VIAL IV ONE; +DEXAMETHASONE SOD PHOSPHATE 4 MG/ML 1 ML VIAL IV ONE; -HEPARIN SODIUM,PORCINE 5,000 UNIT/ML 1 ML VIAL SQ ONE; +LIDOCAINE 1% (10MG/ML) FOR IV START INTRADERMA PRN; -MORPHINE SULFATE 4 MG/ML SYRINGE IV PRN; -ONDANSETRON 4 MG/2 ML VIAL IVP PRN; +SCOPOLAMINE 1.5MG/72HR PATCH TRANSDERM ONE
[2021-10-05] MEDS ORDERED: LIDOCAINE 1% INJ 10MG/ML (20 ML MDV) ONE (08:59)
[2021-10-05] MEDS ORDERED: NEOSTIGMINE 1 MG/ML 10 ML VIAL ONE (08:59)
[2021-10-05] MEDS ORDERED: PROPOFOL 10 MG/ML 20 ML VIAL IV ONE (08:59)
[2021-10-05] MEDS ORDERED: MIDAZOLAM 2 MG/2 ML VIAL ONE (08:59)
[2021-10-05] MEDS ORDERED: ROCURONIUM 10 MG/ML (5 ML VIAL) IV ONE (08:59)
[2021-10-05] MEDS ORDERED: SUCCINYLCHOLINE CHLORIDE 100 MG/5 ML SYR IV ONE (08:59)
[2021-10-05] MEDS ORDERED: .fentaNYL (PF) 50 MCG/ML AMP ONE (08:59)
[2021-10-05] MEDS ORDERED: KETOROLAC 15 MG/ML 1 ML VIAL ONE (08:59)
[2021-10-05] MEDS ORDERED: HYDROmorphone (PF) 1 MG/ML ONE (08:59)
[2021-10-05] MEDS ORDERED: GLYCOPYRROLATE 0.2 MG/ML 2 ML VIAL ONE (08:59)
[2021-10-05] MEDS ORDERED: BUPIVACAINE (PF) 0.25% 30 ML VIAL SQ ONE (09:31)
--- NOTE | 2021-10-05 09:49 | P.OP ---
Date of Procedure: 10/05/21 Preoperative Diagnosis: 1. Family Planning 2. vulvar cyst Postoperative Diagnosis: same Procedure(s) Performed: 1. laparoscopic tubal ligation 2. aspiration of vulvar cyst Anesthesia: RYAN Surgeon: Heike Ba Estimated Blood Loss (ml): 3 IV fluids (ml): 400 Urine output (ml): 40 Pathology: none sent Condition: stable Disposition: PACU Operative Findings: 1.5cm cyst near clitoral kelly. normal uterus, tubes and ovaries Description of Procedure: Patient was taken to the operating room where general anesthesia was obtained without difficulty. She was prepped and draped in normal sterile fashion in the dorsal lithotomy position, legs placed in the Jac stirrups. Bladder drained of all urine. The 1.5cm cyst was noted near clitoral kelly. A 15 blade was used to make a small incision, mucoid material removed. [place] speculum placed in the vagina and the anterior lip the cervix was grasped with single-tooth tenaculum. The uterus is sounded to 8 cm and the kroner manipulator was placed. Attention was then turned to the abdomen and gloves were changed. A 10 mm infraumbilical incision was made the scalpel and 10 mm optical trocar was placed under direct visualization. A 5 mm suprapubic Incision was made and a 5 mm optical trocar was placed under direct visualization. Survey of the pelvis revealed normal uterus tubes and ovaries. The left fallopian tube was grasped with a Kleppinger and fulgurated 2-3 cm on this side in the ampullar portion. The right fallopian tube was grasped with a Kleppinger and fulgurated 2-3 cm in the ampullar portion. All instruments were then removed from the abdomen and vagina. The 10 mm infraumbilical incision was closed with 0 Vicryl and the fascial layer and then 4-0 Vicryl in a subcuticular fashion. The 5 mm incision was closed with 4-0 Vicryl in a subcuticular fashion. Patient tolerated procedure well, sponge and instrument counts correct 2 and she was taken to recovery room in stable condition.
[2021-10-05 09:52] VITALS: TEMP 97.6
[2021-10-05 10:32] VITALS: RESP 20
[2021-10-05 10:32] LABS: Glucose,Whole Blood 93 mg/dL (75-99)
[2021-10-05 11:06] VITALS: BP 116/70; PULSE 60
== END 2021-10-05 11:00 | disposition home or self-care (01) ==
LOC: OR 07:30
PROVIDERS: ATTEND Obstetrics & Gynecology
DX: Z30.2 Encounter for sterilization (principal); N90.7 Vulvar cyst; Z87.891 Personal history of nicotine dependence
CPT/HCPCS: 58670; 56420; 81025; J2250; J1100; J2710; J2405; J2001; J3010; J1170; J1885; J0330; J2704

== ENCOUNTER → 2022-11-29 | Outpatient (CLI) | payer OTHER ==
--- NOTE | 2022-11-29 16:18 | US ---
EXAMINATION TYPE: US pelvic complete DATE OF EXAM: 11/29/2022 COMPARISON: 05/25/2018 CLINICAL HISTORY: 27-year-old female N94.6 DYSMENORRHEA, UNSPECIFIED. Hx tubal ligation. Pelvic pain. . A2. TECHNIQUE: Transabdominal sonographic images of the pelvis were acquired. Date of LMP: 11/18/2022 FINDINGS: EXAM MEASUREMENTS: Uterus: 8.0 x 4.6 x 3.2 cm Endometrial Stripe: 0.60 cm Right Ovary: 3.2 x 1.9 x 2.0 cm Left Ovary: 3.6 x 1.5 x 1.5 cm 1. Uterus: Anteverted and otherwise within normal limits 2. Endometrium: Measures 0.60 cm. 3. Right Ovary: Within cyst measuring 1.9 x 1.6 x 1.4 cm. Some internal echoes are noted. 4. Left Ovary: Appears wnl 5. Bilateral Adnexa: Appear wnl 6. Posterior cul-de-sac: Appears wnl IMPRESSION: 1. A 1.9 cm dominant follicle or functional cyst of the right ovary. Some internal echoes could refle ct some internal hemorrhage. 2. Otherwise, no specific abnormality on transabdominal scanning of the pelvis.
== END | disposition home or self-care (01) ==
LOC: RADUSWWP 12:24
PROVIDERS: ATTEND Obstetrics & Gynecology
DX: N94.6 Dysmenorrhea, unspecified (principal); N83.201 Unspecified ovarian cyst, right side; Z98.51 Tubal ligation status
CPT/HCPCS: 76856

== ENCOUNTER 2023-02-04 06:54 | Day surgery (SDC) | payer OTHER ==
[2022-12-28 11:05] VITALS: BMI 22.9
[~2023-02-04 06:54] MED LIST changes: -DEXAMETHASONE SOD PHOSPHATE 4 MG/ML 1 ML VIAL IV ONE; -HYDROmorphone 0.5 MG/0.5 ML SYRINGE IVP PRN; -LACTATED RINGERS 1,000 ML IV SCH; -LIDOCAINE 1% (10MG/ML) FOR IV START INTRADERMA PRN; -ONDANSETRON 4 MG/2 ML VIAL IVP ONE; -SCOPOLAMINE 1.5MG/72HR PATCH TRANSDERM ONE
[2023-02-04] MEDS ORDERED: LACTATED RINGERS 1,000 ML IV SCH (07:04)
[2023-02-04] MEDS ORDERED: SCOPOLAMINE 1 MG/72 HR PATCH TRANSDERM ONE (07:04)
[2023-02-04] MEDS ORDERED: HYDROmorphone 0.5 MG/0.5 ML SYRINGE IVP PRN (07:04)
[2023-02-04] MEDS ORDERED: ONDANSETRON 4 MG/2 ML VIAL IVP ONE (07:04)
[2023-02-04] MEDS ORDERED: MIDAZOLAM 2 MG/2 ML VIAL IV PRN (07:04)
[2023-02-04] MEDS ORDERED: DEXAMETHASONE SOD PHOSPHATE 4 MG/ML 1 ML VIAL IV ONE (07:04)
[2023-02-04 07:28] VITALS: RESP 16; TEMP 97.6
--- NOTE | 2023-02-04 07:37 | P.HPOB ---
History of Present Illness H&P Date: 02/04/23 Chief Complaint: vulvar cyst 27 year old presents for removal of vulvar cyst. Review of Systems All systems: negative Constitutional: Denies chills, Denies fever Eyes: denies blurred vision, denies pain Ears, nose, mouth and throat: Denies headache, Denies sore throat Cardiovascular: Denies chest pain, Denies shortness of breath Respiratory: Denies cough Gastrointestinal: Denies abdominal pain, Denies diarrhea, Denies nausea, Denies vomiting Genitourinary: Denies dysuria, Denies hematuria Musculoskeletal: Denies myalgias Integumentary: Denies pruritus, Denies rash Neurological: Denies numbness, Denies weakness Psychiatric: Denies anxiety, Denies depression Endocrine: Denies fatigue, Denies weight change Past Medical History Past Medical History: Eye Disorder Additional Past Medical History / Comment(s): Hypoglycemia. DIPLOPIA(Double Vision). RECURRENT VULVAR CYST, OVARIAN CYSTS. History of Any Multi-Drug Resistant Organisms: None Reported Past Surgical History: Tubal Ligation Additional Past Surgical History / Comment(s): Lipoma removed from stomach. RIGHT EYE X 2 LT EYE X 1 SURGERY FOR DIPLOPIA 09/2017, 04/2018, 08/2021. ASPIRATION OF VULVAR CYST WITH TUBAL LIGATION, cysts removed from back of neck when younger. Past Anesthesia/Blood Transfusion Reactions: No Reported Reaction Smoking Status: Former smoker - Past Family History Father Family Medical History: Eye Disorder, Musculoskeletal Disorder Additional Family Medical History / Comment(s): Pacemaker, glaucoma, scoliosis. Mother Family Medical History: Cancer Additional Family Medical History / Comment(s): MS, breast cancer. Medications and Allergies Home Medications Medication Instructions Recorded Confirmed Type Ibuprofen [Motrin Ib] 400 mg PO DIRECTED PRN 01/30/23 02/04/23 History Allergies Allergy/AdvReac Type Severity Reaction Status Date / Time No Known Allergies Allergy Verified 02/04/23 07:19 Exam Osteopathic Statement: *. No significant issues noted on an osteopathic structural exam other than those noted in the History and Physical/Consult. Vital Signs Temp Pulse Resp BP Pulse Ox 02/04/23 07:26 97.6 F 61 16 125/71 99 Intake and Output 02/03/23 02/04/23 02/04/23 22:59 06:59 14:59 Other: Weight 69 kg Heart: RRR Lungs: CTAB Abdomen: soft, nontender Extremeties: neg brittany's Assessment and Plan (1) Vulvar cyst Current Visit: Yes Status: Acute Code(s): N90.7 - VULVAR CYST SNOMED Code(s): 25540547 Plan: 1. removal of vulvar cyst under anesthesia
[2023-02-04 07:47] LABS: Glucose,Whole Blood 97 mg/dL (70-110)
[2023-02-04] MEDS ORDERED: fentaNYL (PF) 50 MCG/ML 2 ML AMP ONE (08:21)
[2023-02-04] MEDS ORDERED: PROPOFOL 10 MG/ML 20 ML VIAL IV ONE (08:21)
[2023-02-04] MEDS ORDERED: KETAMINE 10 MG/ML 20 ML VIAL ONE (08:21)
[2023-02-04] MEDS ORDERED: MIDAZOLAM 2 MG/2 ML VIAL ONE (08:21)
[2023-02-04] MEDS ORDERED: LIDOCAINE 2% (PF) 20 MG/ML 10 ML AMP SQ ONE (08:35)
--- NOTE | 2023-02-04 08:49 | P.OP ---
Date of Procedure: 02/04/23 Preoperative Diagnosis: 1. vulvar cyst Postoperative Diagnosis: 1. vulvar cyst Procedure(s) Performed: aspiration and partial removal of vulvar cyst Anesthesia: MAC Surgeon: Heike Ba Estimated Blood Loss (ml): 5 IV fluids (ml): 300 Urine output (ml): 40 Pathology: other (cyst wall) Condition: stable Disposition: PACU Description of Procedure: Patient is taken the operating room where light sedation was obtained without difficulty. Patient is prepped draped in normal sterile fashion dorsal lithotomy position, legs placed in candycane stirrups. Bladder was drained of all urine. The one and a half centimeters cyst was noted on the left labia near the clitoris. 2% lidocaine was injected beneath the cyst. A 15 blade was used to make a 1 cm incision. Brown discharge was removed from the cyst. Piece of the cyst wall was grasped with the hemostats and dissected out using a scalpel. 4-0 Vicryl was used to close this incision. Hemostasis was assured. Patient tolerated procedure well. Sponge and instrument counts correct 2. She was taken to recovery in stable condition.
[2023-02-04 09:30] VITALS: BP 119/68; PULSE 56
== END 2023-02-04 09:40 | disposition home or self-care (01) ==
LOC: OR 06:54
PROVIDERS: ATTEND Obstetrics & Gynecology
DX: N90.7 Vulvar cyst (principal); H53.2 Diplopia; E16.2 Hypoglycemia, unspecified; F12.90 Cannabis use, unspecified, uncomplicated; Z98.51 Tubal ligation status; Z98.890 Other specified postprocedural states; Z87.891 Personal history of nicotine dependence; Z82.69 Family history of other diseases of the musculoskeletal system and connective tissue; Z82.49 Family history of ischemic heart disease and other diseases of the circulatory system; Z80.3 Family history of malignant neoplasm of breast; Z83.518 Family history of other specified eye disorder; Z79.1 Long term (current) use of non-steroidal anti-inflammatories (NSAID)
CPT/HCPCS: 56620; 81025; 88305; J2250; J1100; J2001; J2405; J3010; J2704

== ENCOUNTER → 2024-02-14 | Outpatient (CLI) | payer OTHER ==
--- NOTE | 2024-02-14 12:25 | XR ---
EXAMINATION TYPE: XR knee complete RT DATE OF EXAM: 02/14/2024 COMPARISON: NONE HISTORY: . TECHNIQUE: Three views are submitted. FINDINGS: Joint spaces are preserved. Osseous structures are intact. No acute fracture seen. Trace amount of fluid in the suprapatellar bursa. IMPRESSION: 1. No acute fracture or dislocation.
== END | disposition home or self-care (01) ==
LOC: RADXRMAIN 11:58
PROVIDERS: ATTEND Internal Medicine
DX: M25.561 Pain in right knee (principal)